=== PATIENT | male | born 1950 | race Caucasian/White ===

== ENCOUNTER → 2017-08-25 10:29 | Outpatient (CLI) | payer MEDICARE, MEDICAID, SELFPAY | PROVIDERS: PCP Family Medicine Geriatric Medicine; Visit Provider Internal Medicine | DX: I87.312 Chronic venous hypertension (idiopathic) with ulcer of left lower extremity (principal); L97.822 Non-pressure chronic ulcer of other part of left lower leg with fat layer exposed; R21 Rash and other nonspecific skin eruption; L03.116 Cellulitis of left lower limb | CPT/HCPCS: 11042 ==

== ENCOUNTER → 2017-08-25 14:07 | Outpatient (REF) | payer MEDICARE, MEDICAID, SELFPAY | LOC: LAB 14:07 | PROVIDERS: PCP Family Medicine Geriatric Medicine; Visit Provider Internal Medicine | DX: L08.9 Local infection of the skin and subcutaneous tissue, unspecified (principal) | CPT/HCPCS: 87070; 87075; 87077; 87186; 87205 ==

== ENCOUNTER → 2017-09-01 13:18 | Outpatient (CLI) | payer MEDICARE, MEDICAID, SELFPAY | PROVIDERS: PCP Family Medicine Geriatric Medicine; Visit Provider Internal Medicine | DX: I87.2 Venous insufficiency (chronic) (peripheral) (principal); L97.822 Non-pressure chronic ulcer of other part of left lower leg with fat layer exposed; A49.01 Methicillin susceptible Staphylococcus aureus infection, unspecified site; A48.1 Legionnaires' disease | CPT/HCPCS: 11042 ==

== ENCOUNTER → 2017-09-08 10:23 | Outpatient (CLI) | payer MEDICARE, MEDICAID, SELFPAY | PROVIDERS: PCP Family Medicine Geriatric Medicine; Visit Provider Internal Medicine | DX: I87.332 Chronic venous hypertension (idiopathic) with ulcer and inflammation of left lower extremity (principal); L97.812 Non-pressure chronic ulcer of other part of right lower leg with fat layer exposed; B35.4 Tinea corporis; R21 Rash and other nonspecific skin eruption; R73.9 Hyperglycemia, unspecified | CPT/HCPCS: 11042 ==

== ENCOUNTER → 2017-09-22 11:07 | Outpatient (CLI) | payer MEDICARE, MEDICAID, SELFPAY ==
--- NOTE | 2017-09-22 | OV.WND_ITS ---
Progress Note Details Patient Name: Denagelo José Patient Number: [id number] PatientPatientDate: 09/22/2017 Clinician: Norma Samayoa Clinician Cosigner: Lita Lott Physician / Venetian Blind Machine Operator: Jax Krishnan SUBJECTIVE Chief Complaint This information was obtained from the patient Venous ulcer on left leg. Allergies Darvocet-N (Severity: Moderate, Reaction: vomiting), Sulfa (Sulfonamide Antibiotics) (Severity: Moderate, Reaction: rash), Knycqht-Tye-Vmz Reductase Inhibitors ( Severity: Moderate, Reaction: arthralgia), Cephalosporins (Reaction: unknown), penicillin (Reaction: unkown) HPI This information was obtained from the patient 09/22/17. Seen by Bharath Krishnan PA-C. The patient reports a pruritic rash in the periwound area and stable drainage from his venous ulcer of the left leg. 09/08/17. Seen by Dr. Brandt. The patient does not report increased pain associated with the chronic left lower leg venous ulcer since his last visit and he's been applying topical triamcimolone in the periulcer area to treat the chronic rash. Of note, he also reports a new rash over his right wrist. He's reportedly been diagnosed with diabetes in the past while in the hospital but states he's not being treated for this and does not routinely check his blood sugars. 09/01/17. Seen by Dr. Brandt. The patient reports decreased pain and drainage associated with the chronic left lower leg venous ulcer since his last visit and since starting on doxycycline associated cellulitis. His wound culture grew MSSA and group B Strep. 08/25/2017. Seen by Dr. Brandt. Patient reports increased pain and pruritis associated with chronic left lower leg venous ulcer since his last visit. Drainage has increased also and his wound VAC stopped working 3 days ago. He is not currently on antibiotics and does not report fevers or feeling unwell otherwise. 08/18/17. Seen by Dr. Brandt. The patient does not report increased pain associated with the chronic left lower leg venous ulcer since his last visit and he tolerated the compression wrap that's treating chronic venous hypertension without difficulty. 08/11/17. Seen by Dr. Brandt. The patient does not report increased pain associated with the chronic left lower leg venous ulcer since his last visit. He's not been able to pepper picker his Rx that was prescribed for cellulitis associated with the ulcer last week however he tolerated his compression wrap that's treating chronic venous hypertension without difficulty. 08/06/17. Seen by Dr. Brandt. The patient does not report increased pain associated with the chronic left lower leg venous ulcer since his last visit however he continues to have significant green drainage on his dressings. His most recent wound culture grew a resistant coag negative Staph and he's been unable to pepper picker his antibiotics that we prescribed following his last visit. He does not report fevers or feeling unwell in general however. 08/04/17. Seen by Dr. Brandt. The patient does not report increased pain or drainage associated to chronic left lower leg venous ulcers since his last visit. His recent culture grew Diptheroids and a Staph species which is resistant to gentamicin. He's also wearing his compression stocking as recommended to treat chronic venous hypertension in the leg and we' re considering placing a Coban wrap today to further address this issue. 07/28/17. Seen by Dr. Brandt. The patient reports some intermittent pain associated with chronic left lower leg venous ulcer. He has completed his course of doxycycline that was treating the MRSA positive wound culture. His arterial Doppler was also unremarkable and the staff also note increased swelling in the left leg today. 07/21/17. Seen by Dr. Brandt. The patient feels that pain reported last week associated with a chronic left lower leg venous ulcer has improved considerably since started on doxycycline. Of note his culture from the last visit grew MRSA sensitive to doxycycline. He is not reporting any problems regarding the wound VAC, fevers, or feeling unwell otherwise. 07/14/17. Seen by Dr. Brandt. The patient continues on levofloxacin for cellulitis associated with chronic left lower leg venous ulcer since his last visit. He does not reporting or side effects fevers or feeling unwell. He is also tolerating negative pressure wound therapy without difficulty. 07/07/17. Seen by Dr. Brandt. The patient does not report increased pain or drainage associated to chronic left lower leg venous ulcers since his last visit. He is now on levofloxacin for the recent MSSA positive culture and cellulitis associated with the ulcer. He does not report other side effects, fevers, nor feeling unwell in general. 06/30/17. Seen by Dr. Brandt. The patient reports some pain associated with the chronic left lower leg venous ulcer that was first noticeable 3 days ago. He does not report fevers or feeling unwell and is currently not on antibiotics. He is wearing his compression stockings recommended and tolerating a pressure with therapy without difficulty. 06/23/17. Seen by Dr. Brandt. The patient reports some intermittent discomfort associated with the chronic left lower leg venous ulcer since last visit. He is tolerating a negative pressure wound therapy and his compression stocking without difficulty also. 06/16/17. Seen by Bharath Krishnan PA-C. The patient reports that his ulcer drainage has decreased since he began taking doxycycline. He still has a few days left in his prescribed course. 06/10/17. Seen by Dr. Brandt. The patient does not report pain or increased drainage associated with the chronic left lower leg venous ulcer since his last visit and he continues on docxycycline for the recent cellulitis associated with the ulcer. 06/03/17. Seen by Dr. Brandt. The patient was started on ciprofloxacin for the recent Klebsiella and staph positive wound culture taken last week from the left lower leg venous ulcer. He reports moderate to significant nausea when taking the ciprofloxacin and stopped after 3 days. He does not report fevers or feeling unwell or pain associated with the ulcer today and his arterial Doppler has not yet been scheduled. 05/26/17. Seen by Bharath Krishnan PA-C. This patient is new to our clinic and presents with an ulcer of the left lower leg that has been present for 2 months. He reports that he has previously been on antibiotics and that the ulcer has grown in size over the past 2 months. The ulcer began as a blister associated with a bout of cellulitis in his left leg. Family History This information was obtained from the patient Unknown History - Mother, Father, Paternal Grandparents, Heart Disease - Maternal Grandparents Social History This information was obtained from the patient Former smoker - Smoked for 20 years, Quit around 2005, Alcohol Use - 1 per week , Caffeine Use - 1 per day, Children - 1, Lives in - Private home- trailer, Marital Status - Significant Other, Retired Past Medical History This information was obtained from the patient Patient has a medical history of: Osteoarthritis Degenerative Joint Disease Hyperthyroidism Pulmonary Hypertension Chronic nonspecific lung disease Complaints and Symptoms This information was obtained from the patient Patient complains of: General Notes: I have reviewed and concur with the Review of Systems and Past Family Social History documents completed by the clinician, I have reviewed and concur with the Wound Assessment document completed by the clinician Allergic/Immunologic: Frequent Rashes Cardiovascular (Central/Peripheral): Lower extremity (leg) swelling Integumentary (Hair/Skin/Nails): Open Sore Prior Wound History: Drainage, Pain Patient denies complaints or symptoms related to: Cardiovascular (Central): Irregular heart beat Constitutional Symptoms (General Health): Chills, Fever Ear/Nose/Mouth/Throat: Hearing Loss / Aid Gastrointestinal (GI): Nausea / Vomiting Hematologic/Lymphatic: Bleeding / Clotting Disorders, Bleeding Tendency Musculoskeletal: Assistive Devices, Muscle Wasting Neurological: Loss of Protective Sensation, Paralysis Psychiatric: Memory Loss Respiratory: Oxygen Use, Shortness of Breath OBJECTIVE Constitutional Vital signs reviewed and noted. Well developed, lucid, and in no acute distress. . Height/Length: 71 in (180.34 cm), Weight: 235.4 lbs (107 kgs), BMI: 32.8, Temperature: 99.8 ?F (37.67 ?C), Pulse: 103 bpm, Respiratory Rate: 18 breaths/min, Blood Pressure : 147/98 mmHg, Pulse Oximetry: 95 %. Ears, Nose, Mouth, and Throat: Grossly intact. Respiratory: No respiratory distress. Even respirations and without use of accessory muscles.. Integumentary (Hair, Skin) Mild erythema in the periwound area/s without warmth. Refer to appropriate clinician wound documentation for this visit; ulcer extends to subcutaneous fat layer. . Wound #1 Left Leg is a chronic Full Thickness Venous Ulcer and has received a status of Not Healed. Subsequent wound encounter measurements are 2.6cm length x 3cm width x 0.2cm depth, with an area of 7.8 sq cm and a volume of 1.56 cubic cm. No tunneling has been noted. No sinus tract has been noted. No undermining has been noted. There is a moderate amount of sero-sanguineous drainage noted which has no odor. The patient reports a wound pain of level 3/10. The wound margin is attached. Wound bed has Yes epithelialization, No eschar, Yes slough, Yes bright red, pink, firm granulation. The periwound skin exhibited: Edema, Moist, Hemosiderosis. The periwound skin did not exhibit: Brawny Induration, Excoriation, Induration, Callus, Crepitus, Fluctuance, Friable, Rash, Maceration, Atrophie Jennifer, Cyanosis, Ecchymosis, Erythema, Pallor, Rubor. The temperature of the periwound skin is WNL. Periwound skin does not exhibit signs or symptoms of infection. Local Pulse is Palpable. Psychiatric: Judgement and insight: Normal affect with normal thought pattern. Alert and oriented 3/3. Memory grossly intact.. Normal affect. Mood appropriate.. ASSESSMENT Active Problems ICD-10 (Encounter Diagnosis) L97.812 - Non-pressure chronic ulcer of other part of right lower leg with fat layer exposed (Encounter Diagnosis) I87.332 - Chronic venous hypertension (idiopathic) with ulcer and inflammation of left lower extremity (Encounter Diagnosis) R21 - Rash and other nonspecific skin eruption PROCEDURES Wound #1 Wound #1 (Venous Ulcer) is located on the left leg. A skin/subcutaneous tissue level surgical debridement with a total area debrided of 7.8 sq cm was performed by Jax Krishnan PA. Subcutaneous was removed along with devitalized tissue: exudate and slough. The following instrument(s) were used: curette. Pain control was achieved using 4% Lido. A time out was conducted prior to the start of the procedure. A minimal amount of bleeding was controlled with pressure. The procedure was tolerated well with a pain level of 0 throughout and a pain level of 0 following the procedure. Post Debridement Measurements: 2.6cm length x 3cm width x 0.3cm depth; with an area of 7.8 sq cm and a volume of 2.34 cubic cm; PLAN Wound Orders: Wound #1 Left Leg Anesthetic Topical Xylocaine to wound bed. - In clinic only Cleanser Cleanse Wound: - Normal Saline in clinic. May use distilled water at home May Shower. - Please avoid getting tap water in wound. Cover while in shower. Topical Treatments Moisturizing lotion to surround skin. - Triamcinolone Dressings Primary dressing: - Bordered foam. Change Dressing: - Every other day. Additional Orders: Follow-Up Appointments Return Appointment: - - One week Other information: If you develop fever, chills, increased pain, drainage, redness or swelling please call our office. If after hours, respond to the ER. Should you experience any significant changes in your wound(s) or have any questions regarding your home care instructions please contact the wound center @ [phone]. If after hours, contact your primary care physician or go to the hospital emergency room. Scribing Attestation I attest, as the nurse, that I scribed these orders for the physician. I've reviewed the clinician's documentation and agree with the evaluation and plan as written. In addition the patient's ulcer demonstrates evidence of non-viable devitalized tissue which benefits from sharp debridement. I have given the patient a prescription for triamcinolone to apply sparingly to his rash to relieve itching. Electronic Signature(s) Signed By: Date: Bharath Krishnan 09/27/2017 13:49:03 Entered By: Bharath Krishnan on 09/27/2017 12:53:36
== END ==
PROVIDERS: PCP Family Medicine Geriatric Medicine; Visit Provider Physician Assistant
DX: I87.312 Chronic venous hypertension (idiopathic) with ulcer of left lower extremity (principal); L97.822 Non-pressure chronic ulcer of other part of left lower leg with fat layer exposed; M79.605 Pain in left leg
CPT/HCPCS: 11042

== ENCOUNTER → 2017-10-06 11:20 | Outpatient (CLI) | payer MEDICARE, MEDICAID, SELFPAY ==
--- NOTE | 2017-10-06 | OV.WND_ITS ---
Progress Note Details Patient Name: Deangeol José Patient Number: [id number] PatientPatientDate: 10/06/2017 Clinician: Norma Samayoa Clinician Cosigner: Юлия Robison Physician / Microbiology Quality Control Technician: Cash Brandt SUBJECTIVE Chief Complaint This information was obtained from the patient Venous ulcer on left leg. Allergies Darvocet-N (Severity: Moderate, Reaction: vomiting), Sulfa (Sulfonamide Antibiotics) (Severity: Moderate, Reaction: rash), Faepddd-Cjg-Jwo Reductase Inhibitors ( Severity: Moderate, Reaction: arthralgia), Cephalosporins (Reaction: unknown), penicillin (Reaction: unkown) HPI This information was obtained from the patient 10/06/17. Seen by Dr. Brandt. The patient reports increased pain associated with the chronic left lower leg venous ulcer since his last visit. He states he missed his last appointment because he slept in. 09/22/17. Seen by Bharath Krishnan PA-C. The patient reports a pruritic rash in the periwound area and stable drainage from his venous ulcer of the left leg. 09/08/17. Seen by Dr. Brandt. The patient does not report increased pain associated with the chronic left lower leg venous ulcer since his last visit and he's been applying topical triamcimolone in the periulcer area to treat the chronic rash. Of note, he also reports a new rash over his right wrist. He's reportedly been diagnosed with diabetes in the past while in the hospital but states he's not being treated for this and does not routinely check his blood sugars. 09/01/17. Seen by Dr. Brandt. The patient reports decreased pain and drainage associated with the chronic left lower leg venous ulcer since his last visit and since starting on doxycycline associated cellulitis. His wound culture grew MSSA and group B Strep. 08/25/2017. Seen by Dr. Brandt. Patient reports increased pain and pruritis associated with chronic left lower leg venous ulcer since his last visit. Drainage has increased also and his wound VAC stopped working 3 days ago. He is not currently on antibiotics and does not report fevers or feeling unwell otherwise. 08/18/17. Seen by Dr. Brandt. The patient does not report increased pain associated with the chronic left lower leg venous ulcer since his last visit and he tolerated the compression wrap that's treating chronic venous hypertension without difficulty. 08/11/17. Seen by Dr. Brandt. The patient does not report increased pain associated with the chronic left lower leg venous ulcer since his last visit. He's not been able to bulk picker his Rx that was prescribed for cellulitis associated with the ulcer last week however he tolerated his compression wrap that's treating chronic venous hypertension without difficulty. 08/06/17. Seen by Dr. Brandt. The patient does not report increased pain associated with the chronic left lower leg venous ulcer since his last visit however he continues to have significant green drainage on his dressings. His most recent wound culture grew a resistant coag negative Staph and he's been unable to bulk picker his antibiotics that we prescribed following his last visit. He does not report fevers or feeling unwell in general however. 08/04/17. Seen by Dr. Brandt. The patient does not report increased pain or drainage associated to chronic left lower leg venous ulcers since his last visit. His recent culture grew Diptheroids and a Staph species which is resistant to gentamicin. He's also wearing his compression stocking as recommended to treat chronic venous hypertension in the leg and we' re considering placing a Coban wrap today to further address this issue. 07/28/17. Seen by Dr. Brandt. The patient reports some intermittent pain associated with chronic left lower leg venous ulcer. He has completed his course of doxycycline that was treating the MRSA positive wound culture. His arterial Doppler was also unremarkable and the staff also note increased swelling in the left leg today. 07/21/17. Seen by Dr. Brandt. The patient feels that pain reported last week associated with a chronic left lower leg venous ulcer has improved considerably since started on doxycycline. Of note his culture from the last visit grew MRSA sensitive to doxycycline. He is not reporting any problems regarding the wound VAC, fevers, or feeling unwell otherwise. 07/14/17. Seen by Dr. Brandt. The patient continues on levofloxacin for cellulitis associated with chronic left lower leg venous ulcer since his last visit. He does not reporting or side effects fevers or feeling unwell. He is also tolerating negative pressure wound therapy without difficulty. 07/07/17. Seen by Dr. Brandt. The patient does not report increased pain or drainage associated to chronic left lower leg venous ulcers since his last visit. He is now on levofloxacin for the recent MSSA positive culture and cellulitis associated with the ulcer. He does not report other side effects, fevers, nor feeling unwell in general. 06/30/17. Seen by Dr. Brandt. The patient reports some pain associated with the chronic left lower leg venous ulcer that was first noticeable 3 days ago. He does not report fevers or feeling unwell and is currently not on antibiotics. He is wearing his compression stockings recommended and tolerating a pressure with therapy without difficulty. 06/23/17. Seen by Dr. Brandt. The patient reports some intermittent discomfort associated with the chronic left lower leg venous ulcer since last visit. He is tolerating a negative pressure wound therapy and his compression stocking without difficulty also. 06/16/17. Seen by hBarath Krishnan PA-C. The patient reports that his ulcer drainage has decreased since he began taking doxycycline. He still has a few days left in his prescribed course. 06/10/17. Seen by Dr. Brandt. The patient does not report pain or increased drainage associated with the chronic left lower leg venous ulcer since his last visit and he continues on docxycycline for the recent cellulitis associated with the ulcer. 06/03/17. Seen by Dr. Brandt. The patient was started on ciprofloxacin for the recent Klebsiella and staph positive wound culture taken last week from the left lower leg venous ulcer. He reports moderate to significant nausea when taking the ciprofloxacin and stopped after 3 days. He does not report fevers or feeling unwell or pain associated with the ulcer today and his arterial Doppler has not yet been scheduled. 05/26/17. Seen by Bharath Krishnan PA-C. This patient is new to our clinic and presents with an ulcer of the left lower leg that has been present for 2 months. He reports that he has previously been on antibiotics and that the ulcer has grown in size over the past 2 months. The ulcer began as a blister associated with a bout of cellulitis in his left leg. Past Medical History This information was obtained from the patient Patient has a medical history of: Osteoarthritis Degenerative Joint Disease Hyperthyroidism Pulmonary Hypertension Chronic nonspecific lung disease Complaints and Symptoms This information was obtained from the patient Patient complains of: General Notes: I have reviewed and concur with the Review of Systems and Past Family Social History documents completed by the clinician, I have reviewed and concur with the Wound Assessment document completed by the clinician Allergic/Immunologic: Frequent Rashes Cardiovascular (Central/Peripheral): Lower extremity (leg) swelling Integumentary (Hair/Skin/Nails): Open Sore Prior Wound History: Drainage, Pain Patient denies complaints or symptoms related to: Cardiovascular (Central): Irregular heart beat Constitutional Symptoms (General Health): Chills, Fever Ear/Nose/Mouth/Throat: Hearing Loss / Aid Gastrointestinal (GI): Nausea / Vomiting Hematologic/Lymphatic: Bleeding / Clotting Disorders, Bleeding Tendency Musculoskeletal: Assistive Devices, Muscle Wasting Neurological: Loss of Protective Sensation, Paralysis Psychiatric: Memory Loss Respiratory: Oxygen Use, Shortness of Breath OBJECTIVE Constitutional BP elevated; Afebrile; Alert and in no distress. Well developed. Alert. Clean appearing.. Height/Length: 71 in (180.34 cm), Weight: 232 lbs (105.45 kgs), BMI: 32.4, Temperature: 99.7 ?F (37.61 ?C), Pulse: 96 bpm, Respiratory Rate: 18 breaths/min, Blood Pressure: 148/89 mmHg, Pulse Oximetry: 98 %. Ears, Nose, Mouth, and Throat: No clinically significant hearing loss on informal examination. Respiratory: No respiratory distress. Even respirations and without use of accessory muscles.. Integumentary (Hair, Skin) Mild periwound erythema with warmth. Refer to appropriate clinician wound documentation for this visit; left lower leg ulcer extends to subcut with base partially covered with pink granulation, remainder fibrin and slough. Wound #1 Left Leg is a chronic Full Thickness Venous Ulcer and has received a status of Not Healed. Subsequent wound encounter measurements are 2.5cm length x 2.6cm width x 0.1cm depth, with an area of 6.5 sq cm and a volume of 0.65 cubic cm. No tunneling has been noted. No sinus tract has been noted. No undermining has been noted. There is a moderate amount of sero-sanguineous drainage noted which has no odor. The patient reports a wound pain of level 3/10. The wound margin is attached. Wound bed has Yes epithelialization, No eschar, Yes slough, Yes bright red, pink, firm granulation. The periwound skin moisture is normal. The periwound skin exhibited: Edema, Hemosiderosis. The periwound skin did not exhibit: Brawny Induration, Excoriation, Induration, Callus, Crepitus, Fluctuance, Friable, Rash, Atrophie Jennifer, Cyanosis, Ecchymosis, Erythema, Pallor, Rubor. The temperature of the periwound skin is WNL. Periwound skin does not exhibit signs or symptoms of infection. Local Pulse is Palpable. Neurological: Cranial nerves grossly intact with symmetric function normal by informal observation.. ASSESSMENT Active Problems ICD-10 (Encounter Diagnosis) L97.812 - Non-pressure chronic ulcer of other part of right lower leg with fat layer exposed (Encounter Diagnosis) I87.332 - Chronic venous hypertension (idiopathic) with ulcer and inflammation of left lower extremity (Encounter Diagnosis) L08.9 - Local infection of the skin and subcutaneous tissue, unspecified PROCEDURES Wound #1 Wound #1 (Venous Ulcer) is located on the left leg. A skin/subcutaneous tissue level surgical debridement with a total area debrided of 6.5 sq cm was performed by Cash Brandt MD. Subcutaneous was removed along with devitalized tissue: slough. The following instrument(s) were used: curette. Pain control was achieved using 4% Lido. A time out was conducted prior to the start of the procedure. A minimal amount of bleeding was controlled with pressure. The procedure was tolerated well with a pain level of 0 throughout and a pain level of 0 following the procedure. Post Debridement Measurements: 2.5cm length x 2.6cm width x 0.2cm depth; with an area of 6.5 sq cm and a volume of 1.3 cubic cm; PLAN Wound Orders: Wound #1 Left Leg Anesthetic Topical Xylocaine to wound bed. - In clinic only Cleanser Cleanse Wound: - Normal Saline in clinic. May use distilled water at home May Shower. - Please avoid getting tap water in wound. Cover while in shower. Topical Treatments Antibiotic/Antimicrobial Ointment/Cream. - Triple antibiotic to wound bed. Dressings Primary dressing: - Bordered foam. Change Dressing: - Every other day. Additional Orders: Follow-Up Appointments Return Appointment: - - One week Other information: If you develop fever, chills, increased pain, drainage, redness or swelling please call our office. If after hours, respond to the ER. Should you experience any significant changes in your wound(s) or have any questions regarding your home care instructions please contact the wound center @ [phone]. If after hours, contact your primary care physician or go to the hospital emergency room. Scribing Attestation I attest, as the nurse, that I scribed these orders for the physician. Laboratory: Bacteria identified in Wound by Culture - #1 Left leg. I've reviewed the clinician's documentation and agree with the evaluation and plan as written. In addition, the patient's ulcer demonstrates evidence of non-viable devitalized tissue which will continue to benefit from sharp debridement to help promote granulation and expedite healing. Also, the patient's left lower leg ulcer appears to be infected today and I've repeated a wound culture and started treating with topical OTC antibiotic ointment. Electronic Signature(s) Signed By: Date: Cash Brandt MD 10/08/2017 08:46:21 Entered By: Cash Brandt on 10/06/2017 14:14:09
== END ==
PROVIDERS: PCP Family Medicine Geriatric Medicine; Visit Provider Internal Medicine
DX: I87.312 Chronic venous hypertension (idiopathic) with ulcer of left lower extremity (principal); L97.822 Non-pressure chronic ulcer of other part of left lower leg with fat layer exposed; L08.9 Local infection of the skin and subcutaneous tissue, unspecified
CPT/HCPCS: 11042; 87070; 87075; 87077; 87147; 87205

== ENCOUNTER → 2017-10-20 10:27 | Outpatient (CLI) | payer MEDICARE, MEDICAID, SELFPAY ==
--- NOTE | 2017-10-20 | OV.WND_ITS ---
Progress Note Details Patient Name: Deangelo José Patient Number: [id number] PatientPatientDate: 10/20/2017 Clinician: Lita Lott Clinician Cosigner: Leigh Arredondo Physician / Cutter Operator Tile: Cash Brandt SUBJECTIVE Chief Complaint This information was obtained from the patient Venous ulcer on left leg. Allergies Darvocet-N (Severity: Moderate, Reaction: vomiting), Sulfa (Sulfonamide Antibiotics) (Severity: Moderate, Reaction: rash), Ycldqmj-Glw-Fbj Reductase Inhibitors ( Severity: Moderate, Reaction: arthralgia), Cephalosporins (Reaction: unknown), penicillin (Reaction: unkown) HPI This information was obtained from the patient . Seen by Dr. Brandt. The patient does not report increased pain or drainage associated with the chronic left lower leg venous ulcer since his last visit. He missed last week's appointment because he overslept and of note he states he went swimming before his appointment today in [place]. The dressing was uncovered when he arrived today. 10/06/17. Seen by Dr. Brandt. The patient reports increased pain associated with the chronic left lower leg venous ulcer since his last visit. He states he missed his last appointment because he slept in. 09/22/17. Seen by Bharath Krishnan PA-C. The patient reports a pruritic rash in the periwound area and stable drainage from his venous ulcer of the left leg. 09/08/17. Seen by Dr. Brandt. The patient does not report increased pain associated with the chronic left lower leg venous ulcer since his last visit and he's been applying topical triamcimolone in the periulcer area to treat the chronic rash. Of note, he also reports a new rash over his right wrist. He's reportedly been diagnosed with diabetes in the past while in the hospital but states he's not being treated for this and does not routinely check his blood sugars. 09/01/17. Seen by Dr. Brandt. The patient reports decreased pain and drainage associated with the chronic left lower leg venous ulcer since his last visit and since starting on doxycycline associated cellulitis. His wound culture grew MSSA and group B Strep. 08/25/2017. Seen by Dr. Brandt. Patient reports increased pain and pruritis associated with chronic left lower leg venous ulcer since his last visit. Drainage has increased also and his wound VAC stopped working 3 days ago. He is not currently on antibiotics and does not report fevers or feeling unwell otherwise. 08/18/17. Seen by Dr. Brandt. The patient does not report increased pain associated with the chronic left lower leg venous ulcer since his last visit and he tolerated the compression wrap that's treating chronic venous hypertension without difficulty. 08/11/17. Seen by Dr. Brandt. The patient does not report increased pain associated with the chronic left lower leg venous ulcer since his last visit. 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 08/06/17. Seen by Dr. Brandt. The patient does not report increased pain associated with the chronic left lower leg venous ulcer since his last visit however he continues to have significant green drainage on his dressings. 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 He does not report fevers or feeling unwell in general however. 08/04/17. Seen by Dr. Brandt. The patient does not report increased pain or drainage associated to chronic left lower leg venous ulcers since his last visit. His recent culture grew Diptheroids and a Staph species which is resistant to gentamicin. He's also wearing his compression stocking as recommended to treat chronic venous hypertension in the leg and we' re considering placing a Coban wrap today to further address this issue. 07/28/17. Seen by Dr. Brandt. The patient reports some intermittent pain associated with chronic left lower leg venous ulcer. He has completed his course of doxycycline that was treating the MRSA positive wound culture. His arterial Doppler was also unremarkable and the staff also note increased swelling in the left leg today. 07/21/17. Seen by Dr. Brandt. The patient feels that pain reported last week associated with a chronic left lower leg venous ulcer has improved considerably since started on doxycycline. Of note his culture from the last visit grew MRSA sensitive to doxycycline. He is not reporting any problems regarding the wound VAC, fevers, or feeling unwell otherwise. 07/14/17. Seen by Dr. Brandt. The patient continues on levofloxacin for cellulitis associated with chronic left lower leg venous ulcer since his last visit. He does not reporting or side effects fevers or feeling unwell. He is also tolerating negative pressure wound therapy without difficulty. 07/07/17. Seen by Dr. Brandt. The patient does not report increased pain or drainage associated to chronic left lower leg venous ulcers since his last visit. He is now on levofloxacin for the recent MSSA positive culture and cellulitis associated with the ulcer. He does not report other side effects, fevers, nor feeling unwell in general. 06/30/17. Seen by Dr. Brandt. The patient reports some pain associated with the chronic left lower leg venous ulcer that was first noticeable 3 days ago. He does not report fevers or feeling unwell and is currently not on antibiotics. He is wearing his compression stockings recommended and tolerating a pressure with therapy without difficulty. 06/23/17. Seen by Dr. Brandt. The patient reports some intermittent discomfort associated with the chronic left lower leg venous ulcer since last visit. He is tolerating a negative pressure wound therapy and his compression stocking without difficulty also. 06/16/17. Seen by Bharath Krishnan PA-C. The patient reports that his ulcer drainage has decreased since he began taking doxycycline. He still has a few days left in his prescribed course. 06/10/17. Seen by Dr. Brandt. The patient does not report pain or increased drainage associated with the chronic left lower leg venous ulcer since his last visit and he continues on docxycycline for the recent cellulitis associated with the ulcer. 06/03/17. Seen by Dr. Brandt. The patient was started on ciprofloxacin for the recent Klebsiella and staph positive wound culture taken last week from the left lower leg venous ulcer. He reports moderate to significant nausea when taking the ciprofloxacin and stopped after 3 days. He does not report fevers or feeling unwell or pain associated with the ulcer today and his arterial Doppler has not yet been scheduled. 05/26/17. Seen by Bharath Krishnan PA-C. This patient is new to our clinic and presents with an ulcer of the left lower leg that has been present for 2 months. He reports that he has previously been on antibiotics and that the ulcer has grown in size over the past 2 months. The ulcer began as a blister associated with a bout of cellulitis in his left leg. Past Medical History This information was obtained from the patient Patient has a medical history of: Osteoarthritis Degenerative Joint Disease Hyperthyroidism Pulmonary Hypertension Chronic nonspecific lung disease Complaints and Symptoms This information was obtained from the patient Patient complains of: General Notes: I have reviewed and concur with the Review of Systems and Past Family Social History documents completed by the clinician, I have reviewed and concur with the Wound Assessment document completed by the clinician Allergic/Immunologic: Frequent Rashes Cardiovascular (Central/Peripheral): Lower extremity (leg) swelling Integumentary (Hair/Skin/Nails): Open Sore Prior Wound History: Drainage, Pain Patient denies complaints or symptoms related to: Cardiovascular (Central): Irregular heart beat Constitutional Symptoms (General Health): Chills, Fever Ear/Nose/Mouth/Throat: Hearing Loss / Aid Gastrointestinal (GI): Nausea / Vomiting Hematologic/Lymphatic: Bleeding / Clotting Disorders, Bleeding Tendency Musculoskeletal: Assistive Devices, Muscle Wasting Neurological: Loss of Protective Sensation, Paralysis Psychiatric: Memory Loss Respiratory: Oxygen Use, Shortness of Breath OBJECTIVE Constitutional BP elevated; Afebrile; Alert and in no distress. Well developed. Alert. Clean appearing.. Height/Length: 71 in (180.34 cm), Weight: 224.5 lbs (102.05 kgs), BMI: 31.3, Temperature: 98.1 ?F (36.72 ?C), Pulse: 90 bpm, Respiratory Rate: 18 breaths/min, Blood Pressure: 164/91 mmHg, Pulse Oximetry: 98 %. Ears, Nose, Mouth, and Throat: No clinically significant hearing loss on informal examination. Respiratory: No respiratory distress. Even respirations and without use of accessory muscles.. Cardiovascular: 1+ left lower extremity edema. Integumentary (Hair, Skin) Mild periwound erythema with warmth. Refer to appropriate clinician wound documentation for this visit; left lower leg ulcer extends to subcut with base partially covered with pink granulation, remainder fibrin and slough. Wound #1 Left Leg is a chronic Full Thickness Venous Ulcer and has received a status of Not Healed. Subsequent wound encounter measurements are 4cm length x 2.8cm width x 0.1cm depth, with an area of 11.2 sq cm and a volume of 1.12 cubic cm. No tunneling has been noted. No sinus tract has been noted. No undermining has been noted. There is a moderate amount of sero-sanguineous drainage noted which has no odor. The patient reports a wound pain of level 3/10. The wound margin is attached. Wound bed has Yes epithelialization, No eschar, Yes slough, Yes bright red, pink, firm granulation. The periwound skin moisture is normal. The periwound skin exhibited: Edema, Hemosiderosis. The periwound skin did not exhibit: Brawny Induration, Excoriation, Induration, Callus, Crepitus, Fluctuance, Friable, Rash, Atrophie Jennifer, Cyanosis, Ecchymosis, Erythema, Pallor, Rubor. The temperature of the periwound skin is WNL. Periwound skin does not exhibit signs or symptoms of infection. Local Pulse is Palpable. Neurological: Cranial nerves grossly intact with symmetric function normal by informal observation.. ASSESSMENT Active Problems ICD-10 (Encounter Diagnosis) L97.812 - Non-pressure chronic ulcer of other part of right lower leg with fat layer exposed (Encounter Diagnosis) I87.332 - Chronic venous hypertension (idiopathic) with ulcer and inflammation of left lower extremity (Encounter Diagnosis) L03.116 - Cellulitis of left lower limb (Encounter Diagnosis) Z91.19 - Patient's noncompliance with other medical treatment and regimen PROCEDURES Wound #1 Wound #1 (Venous Ulcer) is located on the left leg. A skin/subcutaneous tissue level surgical debridement with a total area debrided of 11.2 sq cm was performed by Cash Brandt MD. Subcutaneous was removed along with devitalized tissue: exudate and slough. The following instrument(s) were used: curette. Pain control was achieved using 4% Lido. A time out was conducted prior to the start of the procedure. A minimal amount of bleeding was controlled with pressure. The procedure was tolerated well with a pain level of 0 throughout and a pain level of 0 following the procedure. Post Debridement Measurements: 4cm length x 2.8cm width x 0.2cm depth; with an area of 11.2 sq cm and a volume of 2.24 cubic cm; Additional Information Muscle fascia or bone removed and sent to pathology?: No PLAN Wound Orders: Wound #1 Left Leg Anesthetic Topical Xylocaine to wound bed. - In clinic only. Cleanser Cleanse Wound: - Normal Saline in clinic. May use distilled water at home. May Shower. - Please avoid getting tap water in wound. Cover while in shower. DO NOT EXPOSE WOUND TO ANY WATER, INCLUDING LAKES, TAP WATER ETC. Topical Treatments Antibiotic/Antimicrobial Ointment/Cream. - Triple antibiotic to wound bed. Dressings Primary dressing: - Bordered foam. Change Dressing: - Every other day. Additional Orders: Compression/Edema Control Single Layer Compression Hose - Tetragrip size F to left leg, on in the morning and off at night. Follow-Up Appointments Return Appointment: - - One week. Other information: If you develop fever, chills, increased pain, drainage, redness or swelling please call our office. If after hours, respond to the ER. Should you experience any significant changes in your wound(s) or have any questions regarding your home care instructions please contact the wound center @ [phone]. If after hours, contact your primary care physician or go to the hospital emergency room. Scribing Attestation I attest, as the nurse, that I scribed these orders for the physician. 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 I've reviewed the clinician's documentation and agree with the evaluation and plan as written. In addition, the patient's ulcer demonstrates evidence of non-viable devitalized tissue which will continue to benefit from sharp debridement to help promote granulation and expedite healing. Also, the patient's been advised regarding contamination of the ulcer and the need to maintain adequate hygiene. I've also started him on doxycycline due to cellulitis as noted on exam. Electronic Signature(s) Signed By: Date: Cash Brandt MD 10/21/2017 07:05:31 Entered By: Cash Brandt on 10/20/2017 11:57:54
== END ==
PROVIDERS: PCP Family Medicine Geriatric Medicine; Visit Provider Internal Medicine
DX: I87.312 Chronic venous hypertension (idiopathic) with ulcer of left lower extremity (principal); L97.822 Non-pressure chronic ulcer of other part of left lower leg with fat layer exposed; Z91.19 Patient's noncompliance with other medical treatment and regimen
CPT/HCPCS: 11042; 87070; 87075; 87077; 87147; 87186; 87205

== ENCOUNTER → 2017-11-05 10:19 | Outpatient (CLI) | payer MEDICARE, MEDICAID, SELFPAY ==
--- NOTE | 2017-11-05 | OV.WND_ITS ---
Progress Note Details Patient Name: Deangelo José Patient Number: [id number] PatientPatientDate: 11/05/2017 Clinician: Lita Lott Clinician Cosigner: Norma Samayoa Physician / Traffic Representative: Cash Brandt SUBJECTIVE Chief Complaint This information was obtained from the patient Venous ulcer on left leg. Allergies Darvocet-N (Severity: Moderate, Reaction: vomiting), Sulfa (Sulfonamide Antibiotics) (Severity: Moderate, Reaction: rash), Llbgovj-Dsa-Bvu Reductase Inhibitors ( Severity: Moderate, Reaction: arthralgia), Cephalosporins (Reaction: unknown), penicillin (Reaction: unkown) HPI This information was obtained from the patient 11/05/17. Seen by Dr. Brandt. The patient does not report increased pain or drainage associated with the chronic left lower leg venous ulcer since his last visit. His recent wound culture again grew Staph and group G Strep and he's not currently on antibiotics. 10/20/17. Seen by Dr. Brandt. The patient does not report increased pain or drainage associated with the chronic left lower leg venous ulcer since his last visit. He missed last week's appointment because he overslept and of note he states he went swimming before his appointment today in [place]. The dressing was uncovered when he arrived today. 10/06/17. Seen by Dr. Brandt. The patient reports increased pain associated with the chronic left lower leg venous ulcer since his last visit. He states he missed his last appointment because he slept in. 09/22/17. Seen by Bharath Krishnan PA-C. The patient reports a pruritic rash in the periwound area and stable drainage from his venous ulcer of the left leg. 09/08/17. Seen by Dr. Brandt. The patient does not report increased pain associated with the chronic left lower leg venous ulcer since his last visit and he's been applying topical triamcimolone in the periulcer area to treat the chronic rash. Of note, he also reports a new rash over his right wrist. He's reportedly been diagnosed with diabetes in the past while in the hospital but states he's not being treated for this and does not routinely check his blood sugars. 09/01/17. Seen by Dr. Brandt. The patient reports decreased pain and drainage associated with the chronic left lower leg venous ulcer since his last visit and since starting on doxycycline associated cellulitis. His wound culture grew MSSA and group B Strep. 08/25/2017. Seen by Dr. Brandt. Patient reports increased pain and pruritis associated with chronic left lower leg venous ulcer since his last visit. Drainage has increased also and his wound VAC stopped working 3 days ago. He is not currently on antibiotics and does not report fevers or feeling unwell otherwise. 08/18/17. Seen by Dr. Brandt. The patient does not report increased pain associated with the chronic left lower leg venous ulcer since his last visit and he tolerated the compression wrap that's treating chronic venous hypertension without difficulty. 08/11/17. Seen by Dr. Brandt. The patient does not report increased pain associated with the chronic left lower leg venous ulcer since his last visit. He's not been able to sampler pickup his Rx that was prescribed for cellulitis associated with the ulcer last week however he tolerated his compression wrap that's treating chronic venous hypertension without difficulty. 08/06/17. Seen by Dr. Brandt. The patient does not report increased pain associated with the chronic left lower leg venous ulcer since his last visit however he continues to have significant green drainage on his dressings. His most recent wound culture grew a resistant coag negative Staph and he's been unable to sampler pickup his antibiotics that we prescribed following his last visit. He does not report fevers or feeling unwell in general however. 08/04/17. Seen by Dr. Brandt. The patient does not report increased pain or drainage associated to chronic left lower leg venous ulcers since his last visit. His recent culture grew Diptheroids and a Staph species which is resistant to gentamicin. He's also wearing his compression stocking as recommended to treat chronic venous hypertension in the leg and we' re considering placing a Coban wrap today to further address this issue. 07/28/17. Seen by Dr. Brandt. The patient reports some intermittent pain associated with chronic left lower leg venous ulcer. He has completed his course of doxycycline that was treating the MRSA positive wound culture. His arterial Doppler was also unremarkable and the staff also note increased swelling in the left leg today. 07/21/17. Seen by Dr. Brandt. The patient feels that pain reported last week associated with a chronic left lower leg venous ulcer has improved considerably since started on doxycycline. Of note his culture from the last visit grew MRSA sensitive to doxycycline. He is not reporting any problems regarding the wound VAC, fevers, or feeling unwell otherwise. 07/14/17. Seen by Dr. Brandt. The patient continues on levofloxacin for cellulitis associated with chronic left lower leg venous ulcer since his last visit. He does not reporting or side effects fevers or feeling unwell. He is also tolerating negative pressure wound therapy without difficulty. 07/07/17. Seen by Dr. Brandt. The patient does not report increased pain or drainage associated to chronic left lower leg venous ulcers since his last visit. He is now on levofloxacin for the recent MSSA positive culture and cellulitis associated with the ulcer. He does not report other side effects, fevers, nor feeling unwell in general. 06/30/17. Seen by Dr. Brandt. The patient reports some pain associated with the chronic left lower leg venous ulcer that was first noticeable 3 days ago. He does not report fevers or feeling unwell and is currently not on antibiotics. He is wearing his compression stockings recommended and tolerating a pressure with therapy without difficulty. 06/23/17. Seen by Dr. Brandt. The patient reports some intermittent discomfort associated with the chronic left lower leg venous ulcer since last visit. He is tolerating a negative pressure wound therapy and his compression stocking without difficulty also. 06/16/17. Seen by Bharath Krishnan PA-C. The patient reports that his ulcer drainage has decreased since he began taking doxycycline. He still has a few days left in his prescribed course. 06/10/17. Seen by Dr. Brandt. The patient does not report pain or increased drainage associated with the chronic left lower leg venous ulcer since his last visit and he continues on docxycycline for the recent cellulitis associated with the ulcer. 06/03/17. Seen by Dr. Brandt. The patient was started on ciprofloxacin for the recent Klebsiella and staph positive wound culture taken last week from the left lower leg venous ulcer. He reports moderate to significant nausea when taking the ciprofloxacin and stopped after 3 days. He does not report fevers or feeling unwell or pain associated with the ulcer today and his arterial Doppler has not yet been scheduled. 05/26/17. Seen by Bharath Krishnan PA-C. This patient is new to our clinic and presents with an ulcer of the left lower leg that has been present for 2 months. He reports that he has previously been on antibiotics and that the ulcer has grown in size over the past 2 months. The ulcer began as a blister associated with a bout of cellulitis in his left leg. Past Medical History This information was obtained from the patient Patient has a medical history of: Osteoarthritis Degenerative Joint Disease Hyperthyroidism Pulmonary Hypertension Chronic nonspecific lung disease Complaints and Symptoms This information was obtained from the patient Patient complains of: General Notes: I have reviewed and concur with the Review of Systems and Past Family Social History documents completed by the clinician, I have reviewed and concur with the Wound Assessment document completed by the clinician Allergic/Immunologic: Frequent Rashes Cardiovascular (Central/Peripheral): Lower extremity (leg) swelling Integumentary (Hair/Skin/Nails): Open Sore Prior Wound History: Drainage, Pain Patient denies complaints or symptoms related to: Cardiovascular (Central): Irregular heart beat Constitutional Symptoms (General Health): Chills, Fever Ear/Nose/Mouth/Throat: Hearing Loss / Aid Gastrointestinal (GI): Nausea / Vomiting Hematologic/Lymphatic: Bleeding / Clotting Disorders, Bleeding Tendency Musculoskeletal: Assistive Devices, Muscle Wasting Neurological: Loss of Protective Sensation, Paralysis Psychiatric: Memory Loss Respiratory: Oxygen Use, Shortness of Breath OBJECTIVE Constitutional BP elevated; Afebrile; Alert and in no distress. Well developed. Alert. Clean appearing.. Height/Length: 71 in (180.34 cm), Weight: 226.7 lbs (103.05 kgs), BMI: 31.6, Temperature: 98.4 ?F (36.89 ?C), Pulse: 81 bpm, Respiratory Rate: 18 breaths/min, Blood Pressure: 149/84 mmHg, Pulse Oximetry: 98 %. Ears, Nose, Mouth, and Throat: No clinically significant hearing loss on informal examination. Respiratory: No respiratory distress. Even respirations and without use of accessory muscles.. Cardiovascular: 1+ left lower extremity edema. Integumentary (Hair, Skin) Moderate periwound erythema with warmth. Refer to appropriate clinician wound documentation for this visit; left lower leg ulcer extends to subcut with base partially covered with pink granulation, remainder fibrin and slough. Wound #1 Left Leg is a chronic Full Thickness Venous Ulcer and has received a status of Not Healed. Subsequent wound encounter measurements are 4cm length x 3cm width x 0.1cm depth, with an area of 12 sq cm and a volume of 1.2 cubic cm. No tunneling has been noted. No sinus tract has been noted. No undermining has been noted. There is a moderate amount of serous drainage noted which has no odor. The patient reports a wound pain of level 3/10. The wound margin is attached. Wound bed has Yes epithelialization, No eschar, Yes slough, Yes bright red, pink, firm granulation. The periwound skin exhibited: Edema, Moist, Maceration, Erythema, Hemosiderosis. The periwound skin did not exhibit: Brawny Induration, Excoriation, Induration, Callus, Crepitus, Fluctuance, Friable, Rash, Dry/Scaly, Atrophie Nocatee, Cyanosis, Ecchymosis, Pallor, Rubor. The temperature of the periwound skin is WNL. Periwound skin presents with s/s of infection. Confirmation Description and Treatment Plan is: Systemic Antibiotics Prescribed. Local Pulse is Palpable. Neurological: Cranial nerves grossly intact with symmetric function normal by informal observation.. ASSESSMENT Active Problems ICD-10 (Encounter Diagnosis) L97.812 - Non-pressure chronic ulcer of other part of right lower leg with fat layer exposed (Encounter Diagnosis) I87.332 - Chronic venous hypertension (idiopathic) with ulcer and inflammation of left lower extremity (Encounter Diagnosis) L03.116 - Cellulitis of left lower limb PROCEDURES Wound #1 Wound #1 (Venous Ulcer) is located on the left leg. A skin/subcutaneous tissue level surgical debridement with a total area debrided of 12 sq cm was performed by Cash Brandt MD. Subcutaneous was removed along with devitalized tissue: exudate and slough. The following instrument(s) were used: curette. Pain control was achieved using 4% Lido. A time out was conducted prior to the start of the procedure. A minimal amount of bleeding was controlled with pressure. The procedure was tolerated well with a pain level of 0 throughout and a pain level of 0 following the procedure. Post Debridement Measurements: 4cm length x 3cm width x 0.2cm depth; with an area of 12 sq cm and a volume of 2.4 cubic cm; Wound #1 (Venous Ulcer) is located on the left leg. A Disposable Wound Vac Application < 50 Sq Cm procedure was performed for the lower left extremity by Cash Brandt MD. A time out was conducted prior to the start of the procedure. The procedure was tolerated well. General Notes: BEATRICE 6x6. Additional Information Muscle fascia or bone removed and sent to pathology?: No PLAN Wound Orders: Wound #1 Left Leg Anesthetic Topical Xylocaine to wound bed. - In clinic only. Cleanser Cleanse Wound: - Normal Saline in clinic. May use distilled water at home. May Shower. - Please avoid getting tap water in wound. Cover while in shower. DO NOT EXPOSE WOUND TO ANY WATER, INCLUDING LAKES, TAP WATER ETC. Dressings Wound Vac: - BEATRICE 6x6. Change Dressing: - Leave in place until next visit. Additional Orders: Compression/Edema Control Single Layer Compression Hose - Tetragrip size F to left leg, on in the morning and off at night. Follow-Up Appointments Return Appointment: - - One week. Other information: If you develop fever, chills, increased pain, drainage, redness or swelling please call our office. If after hours, respond to the ER. Should you experience any significant changes in your wound(s) or have any questions regarding your home care instructions please contact the wound center @ [phone]. If after hours, contact your primary care physician or go to the hospital emergency room. Scribing Attestation I attest, as the nurse, that I scribed these orders for the physician. Medications prescribed: levofloxacin - oral 500 mg tablet once daily for 5 days for cellulitis starting 11/05/2017 General Notes: Please sampler pickup antibiotic prescription and start taking today. I've reviewed the clinician's documentation and agree with the evaluation and plan as written. In addition, the patient's ulcer demonstrates evidence of non-viable devitalized tissue which will continue to benefit from sharp debridement to help promote granulation and expedite healing. Also, I've restarted the patient on levofloxacin due to recurrence of cellulitis associated with the refractory left lower leg venous ulcer and will adjust antibiotics pending the culture results. Negative pressure wound therapy will be utilized to facilitate granulation and removal of exudate and infectious material with the goal of expediting wound healing. Electronic Signature(s) Signed By: Date: Cash Brandt MD 11/06/2017 07:58:24 Entered By: Cash Brandt on 11/06/2017 07:55:07
== END ==
PROVIDERS: PCP Family Medicine Geriatric Medicine; Visit Provider Internal Medicine
DX: I87.312 Chronic venous hypertension (idiopathic) with ulcer of left lower extremity (principal); L97.822 Non-pressure chronic ulcer of other part of left lower leg with fat layer exposed; L03.116 Cellulitis of left lower limb; B95.7 Other staphylococcus as the cause of diseases classified elsewhere; A49.1 Streptococcal infection, unspecified site
CPT/HCPCS: 11042; 97607

== ENCOUNTER → 2017-11-11 10:25 | Outpatient (CLI) | payer MEDICARE, MEDICAID, SELFPAY ==
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
== END ==
PROVIDERS: PCP Family Medicine Geriatric Medicine; Visit Provider Internal Medicine
DX: I87.312 Chronic venous hypertension (idiopathic) with ulcer of left lower extremity (principal); L97.821 Non-pressure chronic ulcer of other part of left lower leg limited to breakdown of skin
CPT/HCPCS: 11042; 97607

== ENCOUNTER → 2017-11-17 10:36 | Outpatient (CLI) | payer MEDICARE, MEDICAID, SELFPAY ==
--- NOTE | 2017-11-17 | OV.WND_ITS ---
Progress Note Details Patient Name: Deangelo José Patient Number: [id number] PatientPatientDate: 11/17/2017 Clinician: Юлия Robison Clinician Cosigner: Norma Samayoa Physician / Music Cataloguer: Cash Brandt SUBJECTIVE Chief Complaint This information was obtained from the patient Venous ulcer on left leg. Allergies Darvocet-N (Severity: Moderate, Reaction: vomiting), Sulfa (Sulfonamide Antibiotics) (Severity: Moderate, Reaction: rash), Rkielez-Kqc-Gna Reductase Inhibitors ( Severity: Moderate, Reaction: arthralgia), Cephalosporins (Reaction: unknown), penicillin (Reaction: unkown) HPI This information was obtained from the patient 11/17/17. Seen by Dr. Brandt. The patient does not report increased pain or drainage associated with the chronic left lower leg venous ulcer since his last visit. The staff report increased erythema and drainage on his wound vac dressing however. 11/11/17. Seen by Dr. Brandt. The patient does not report increased pain or drainage associated with the chronic left lower leg venous ulcer since his last visit and he completed his course of antibiotics that was treating cellulitis associated with the ulcer. 11/05/17. Seen by Dr. Brandt. The patient does not report increased pain or drainage associated with the chronic left lower leg venous ulcer since his last visit. His recent wound culture again grew Staph and group G Strep and he's not currently on antibiotics. 10/20/17. Seen by Dr. Brandt. The patient does not report increased pain or drainage associated with the chronic left lower leg venous ulcer since his last visit. He missed last week's appointment because he overslept and of note he states he went swimming before his appointment today in [place]. The dressing was uncovered when he arrived today. 10/06/17. Seen by Dr. Brandt. The patient reports increased pain associated with the chronic left lower leg venous ulcer since his last visit. He states he missed his last appointment because he slept in. 09/22/17. Seen by Bharath Krishnan PA-C. The patient reports a pruritic rash in the periwound area and stable drainage from his venous ulcer of the left leg. 09/08/17. Seen by Dr. Brandt. The patient does not report increased pain associated with the chronic left lower leg venous ulcer since his last visit and he's been applying topical triamcimolone in the periulcer area to treat the chronic rash. Of note, he also reports a new rash over his right wrist. He's reportedly been diagnosed with diabetes in the past while in the hospital but states he's not being treated for this and does not routinely check his blood sugars. 09/01/17. Seen by Dr. Brandt. The patient reports decreased pain and drainage associated with the chronic left lower leg venous ulcer since his last visit and since starting on doxycycline associated cellulitis. His wound culture grew MSSA and group B Strep. 08/25/2017. Seen by Dr. Brandt. Patient reports increased pain and pruritis associated with chronic left lower leg venous ulcer since his last visit. Drainage has increased also and his wound VAC stopped working 3 days ago. He is not currently on antibiotics and does not report fevers or feeling unwell otherwise. 08/18/17. Seen by Dr. Brandt. The patient does not report increased pain associated with the chronic left lower leg venous ulcer since his last visit and he tolerated the compression wrap that's treating chronic venous hypertension without difficulty. 08/11/17. Seen by Dr. Brandt. The patient does not report increased pain associated with the chronic left lower leg venous ulcer since his last visit. He's not been able to pharmacy picking tech his Rx that was prescribed for cellulitis associated with the ulcer last week however he tolerated his compression wrap that's treating chronic venous hypertension without difficulty. 08/06/17. Seen by Dr. Brandt. The patient does not report increased pain associated with the chronic left lower leg venous ulcer since his last visit however he continues to have significant green drainage on his dressings. His most recent wound culture grew a resistant coag negative Staph and he's been unable to pharmacy picking tech his antibiotics that we prescribed following his last visit. He does not report fevers or feeling unwell in general however. 08/04/17. Seen by Dr. Brandt. The patient does not report increased pain or drainage associated to chronic left lower leg venous ulcers since his last visit. His recent culture grew Diptheroids and a Staph species which is resistant to gentamicin. He's also wearing his compression stocking as recommended to treat chronic venous hypertension in the leg and we' re considering placing a Coban wrap today to further address this issue. 07/28/17. Seen by Dr. Brandt. The patient reports some intermittent pain associated with chronic left lower leg venous ulcer. He has completed his course of doxycycline that was treating the MRSA positive wound culture. His arterial Doppler was also unremarkable and the staff also note increased swelling in the left leg today. 07/21/17. Seen by Dr. Brandt. The patient feels that pain reported last week associated with a chronic left lower leg venous ulcer has improved considerably since started on doxycycline. Of note his culture from the last visit grew MRSA sensitive to doxycycline. He is not reporting any problems regarding the wound VAC, fevers, or feeling unwell otherwise. 07/14/17. Seen by Dr. Brandt. The patient continues on levofloxacin for cellulitis associated with chronic left lower leg venous ulcer since his last visit. He does not reporting or side effects fevers or feeling unwell. He is also tolerating negative pressure wound therapy without difficulty. 07/07/17. Seen by Dr. Brandt. The patient does not report increased pain or drainage associated to chronic left lower leg venous ulcers since his last visit. He is now on levofloxacin for the recent MSSA positive culture and cellulitis associated with the ulcer. He does not report other side effects, fevers, nor feeling unwell in general. 06/30/17. Seen by Dr. Brandt. The patient reports some pain associated with the chronic left lower leg venous ulcer that was first noticeable 3 days ago. He does not report fevers or feeling unwell and is currently not on antibiotics. He is wearing his compression stockings recommended and tolerating a pressure with therapy without difficulty. 06/23/17. Seen by Dr. Brandt. The patient reports some intermittent discomfort associated with the chronic left lower leg venous ulcer since last visit. He is tolerating a negative pressure wound therapy and his compression stocking without difficulty also. 06/16/17. Seen by Bharath Krishnan PA-C. The patient reports that his ulcer drainage has decreased since he began taking doxycycline. He still has a few days left in his prescribed course. 06/10/17. Seen by Dr. Brandt. The patient does not report pain or increased drainage associated with the chronic left lower leg venous ulcer since his last visit and he continues on docxycycline for the recent cellulitis associated with the ulcer. 06/03/17. Seen by Dr. Brandt. The patient was started on ciprofloxacin for the recent Klebsiella and staph positive wound culture taken last week from the left lower leg venous ulcer. He reports moderate to significant nausea when taking the ciprofloxacin and stopped after 3 days. He does not report fevers or feeling unwell or pain associated with the ulcer today and his arterial Doppler has not yet been scheduled. 05/26/17. Seen by Bharath Krishnan PA-C. This patient is new to our clinic and presents with an ulcer of the left lower leg that has been present for 2 months. He reports that he has previously been on antibiotics and that the ulcer has grown in size over the past 2 months. The ulcer began as a blister associated with a bout of cellulitis in his left leg. Past Medical History This information was obtained from the patient Patient has a medical history of: Osteoarthritis Degenerative Joint Disease Hyperthyroidism Pulmonary Hypertension Chronic nonspecific lung disease Complaints and Symptoms This information was obtained from the patient Patient complains of: General Notes: I have reviewed and concur with the Review of Systems and Past Family Social History documents completed by the clinician, I have reviewed and concur with the Wound Assessment document completed by the clinician Allergic/Immunologic: Frequent Rashes Cardiovascular (Central/Peripheral): Lower extremity (leg) swelling Integumentary (Hair/Skin/Nails): Open Sore Prior Wound History: Drainage, Pain Patient denies complaints or symptoms related to: Cardiovascular (Central): Irregular heart beat Constitutional Symptoms (General Health): Chills, Fever Ear/Nose/Mouth/Throat: Hearing Loss / Aid Gastrointestinal (GI): Nausea / Vomiting Hematologic/Lymphatic: Bleeding / Clotting Disorders, Bleeding Tendency Musculoskeletal: Assistive Devices, Muscle Wasting Neurological: Loss of Protective Sensation, Paralysis Psychiatric: Memory Loss Respiratory: Oxygen Use, Shortness of Breath OBJECTIVE Constitutional Vital signs reviewed and noted. Well developed. Alert. Clean appearing.. Height/ Length: 71 in (180.34 cm), Weight: 222.4 lbs (101.09 kgs), BMI: 31, Temperature: 98.3 ?F ( 36.83 ?C), Pulse: 63 bpm, Respiratory Rate: 18 breaths/min, Blood Pressure: 125/86 mmHg, Pulse Oximetry: 97 %. Ears, Nose, Mouth, and Throat: No clinically significant hearing loss on informal examination. Respiratory: No respiratory distress. Even respirations and without use of accessory muscles.. Cardiovascular: 1+ left lower extremity edema. Integumentary (Hair, Skin) Mild periwound erythema with warmth. Refer to appropriate clinician wound documentation for this visit; left lower leg ulcer extends to subcut with base partially covered with pink granulation, remainder fibrin and slough. Wound #1 Left Leg is a chronic Full Thickness Venous Ulcer and has received a status of Not Healed. Subsequent wound encounter measurements are 4.1cm length x 3.4cm width x 0.1cm depth, with an area of 13.94 sq cm and a volume of 1.394 cubic cm. Hypergranulation was noted. No tunneling has been noted. No sinus tract has been noted. No undermining has been noted. There is a moderate amount of serous drainage noted which has no odor. The patient reports a wound pain of level 1/10. The wound margin is attached. Wound bed has Yes epithelialization, No eschar, Yes slough, Yes bright red, pink, firm granulation. The periwound skin exhibited: Edema, Erythema, Hemosiderosis. The periwound skin did not exhibit: Brawny Induration, Excoriation, Induration, Callus, Crepitus, Fluctuance, Friable, Rash, Dry/Scaly, Moist, Maceration, Atrophie Nicollet, Cyanosis, Ecchymosis, Pallor, Rubor. The temperature of the periwound skin is WNL. Periwound skin does not exhibit signs or symptoms of infection. Local Pulse is Palpable. Neurological: Cranial nerves grossly intact with symmetric function normal by informal observation.. ASSESSMENT Active Problems ICD-10 (Encounter Diagnosis) L97.812 - Non-pressure chronic ulcer of other part of right lower leg with fat layer exposed (Encounter Diagnosis) I87.332 - Chronic venous hypertension (idiopathic) with ulcer and inflammation of left lower extremity (Encounter Diagnosis) L03.116 - Cellulitis of left lower limb PROCEDURES Wound #1 Wound #1 (Venous Ulcer) is located on the left leg. A skin/subcutaneous tissue level surgical debridement with a total area debrided of 13.94 sq cm was performed by Cash Brandt MD. Subcutaneous was removed along with devitalized tissue: exudate and slough. The following instrument(s) were used: curette. Pain control was achieved using 4% Lido. A time out was conducted prior to the start of the procedure. A minimal amount of bleeding was controlled with pressure. The procedure was tolerated well with a pain level of 0 throughout and a pain level of 0 following the procedure. Post Debridement Measurements: 4.1cm length x 3.4cm width x 0.2cm depth; with an area of 13.94 sq cm and a volume of 2.788 cubic cm; Additional Information Muscle fascia or bone removed and sent to pathology?: No PLAN Wound Orders: Wound #1 Left Leg Anesthetic Topical Xylocaine to wound bed. - In clinic only. Cleanser Cleanse Wound: - Normal Saline in clinic. May use distilled water at home. May Shower. - Please avoid getting tap water in wound. Cover while in shower. DO NOT EXPOSE WOUND TO ANY WATER, INCLUDING LAKES, TAP WATER ETC. Topical Treatments Antibiotic/Antimicrobial Ointment/Cream. - Triple antibiotic. Dressings Wound Vac: - Laura 6x6 Change Dressing: - Leave in place until next visit. Additional Orders: Follow-Up Appointments Return Appointment: - - One week. Other information: If you develop fever, chills, increased pain, drainage, redness or swelling please call our office. If after hours, respond to the ER. Should you experience any significant changes in your wound(s) or have any questions regarding your home care instructions please contact the wound center @ [phone]. If after hours, contact your primary care physician or go to the hospital emergency room. Scribing Attestation I attest, as the nurse, that I scribed these orders for the physician. Laboratory: Culture Wound Medications prescribed: doxycycline hyclate - oral 100 mg capsule twice daily for 5 days for cellulitis starting 11/17/2017 I've reviewed the clinician's documentation and agree with the evaluation and plan as written. In addition, the patient's ulcer demonstrates evidence of non-viable devitalized tissue which will continue to benefit from sharp debridement to help promote granulation and expedite healing. Also, I've cultured the ulcer and started the patient empirically on doxycycline for cellulitis of the left lower leg. Electronic Signature(s) Signed By: Date: Cash Brandt MD 11/17/2017 16:47:11 Entered By: Cash Brandt on 11/17/2017 16:42:04
== END ==
PROVIDERS: PCP Family Medicine Geriatric Medicine; Visit Provider Internal Medicine
DX: I87.312 Chronic venous hypertension (idiopathic) with ulcer of left lower extremity (principal); L97.822 Non-pressure chronic ulcer of other part of left lower leg with fat layer exposed; L03.116 Cellulitis of left lower limb
CPT/HCPCS: 11042; 87070; 87075; 87077; 87147; 87205; 97607

== ENCOUNTER → 2017-11-24 10:38 | Outpatient (CLI) | payer MEDICARE, MEDICAID, SELFPAY | PROVIDERS: PCP Family Medicine Geriatric Medicine; Visit Provider Internal Medicine | DX: I87.312 Chronic venous hypertension (idiopathic) with ulcer of left lower extremity (principal); L97.822 Non-pressure chronic ulcer of other part of left lower leg with fat layer exposed | CPT/HCPCS: 11042; 97607 ==

== ENCOUNTER → 2017-12-09 13:16 | Outpatient (CLI) | payer MEDICARE, MEDICAID, SELFPAY | PROVIDERS: PCP Family Medicine Geriatric Medicine; Visit Provider Internal Medicine | DX: I87.312 Chronic venous hypertension (idiopathic) with ulcer of left lower extremity (principal); L97.822 Non-pressure chronic ulcer of other part of left lower leg with fat layer exposed; L03.116 Cellulitis of left lower limb | CPT/HCPCS: 11042; 97607 ==

== ENCOUNTER → 2017-12-16 10:00 | Outpatient (CLI) | payer MEDICARE, MEDICAID, SELFPAY ==
--- NOTE | 2017-12-16 | OV.WND_ITS ---
Progress Note Details Patient Name: Deangelo José Patient Number: [id number] PatientPatientDate: 12/16/2017 Clinician: Leigh Arredondo Physician / Utilities Service Investigator: Cash Brandt SUBJECTIVE Chief Complaint This information was obtained from the patient Venous ulcer on left leg. Allergies Darvocet-N (Severity: Moderate, Reaction: vomiting), Sulfa (Sulfonamide Antibiotics) (Severity: Moderate, Reaction: rash), Exfpwes-Ctk-Fww Reductase Inhibitors ( Severity: Moderate, Reaction: arthralgia), Cephalosporins (Reaction: unknown), penicillin (Reaction: unkown) HPI This information was obtained from the patient 12/16/17. Seen by Dr. Brandt. The patient has recently completed a course of antibiotics for left 5th toe cellulitis but feels the pain persists. He's also developed recurrent left lower leg erythema in the periulcer area of the chronic venous ulcer again despite being on antibiotics. He's had refractory cellulitis associated with this ulcer on and off for the past few months which has been responsive to doxycycline. 12/09/14. Seen by Dr. Brandt. The patient does not report increased pain or drainage associated with the chronic left lower leg venous ulcer since his last visit and he's tolerating NPWT without difficulty. He's also been given an Rx by his PCP for left 5th toe cellulitis which has been present for a number of weeks and notably has not resolved despite taking antibiotics for the recurrent left lower leg wound infection and cellulitis. 11/24/17. Seen by Dr. Brandt. The patient's completed his course of doxycycline that was treating the left lower leg cellulitis associated with the chronic left lower leg venous ulcer. He does not report pain in the leg nor increased drainage and tolerated NPWT without difficulty. 11/17/17. Seen by Dr. Brandt. The patient does not report increased pain or drainage associated with the chronic left lower leg venous ulcer since his last visit. The staff report increased erythema and drainage on his wound vac dressing however. 11/11/17. Seen by Dr. Brandt. The patient does not report increased pain or drainage associated with the chronic left lower leg venous ulcer since his last visit and he completed his course of antibiotics that was treating cellulitis associated with the ulcer. 11/05/17. Seen by Dr. Brandt. The patient does not report increased pain or drainage associated with the chronic left lower leg venous ulcer since his last visit. His recent wound culture again grew Staph and group G Strep and he's not currently on antibiotics. 10/20/17. Seen by Dr. Brandt. The patient does not report increased pain or drainage associated with the chronic left lower leg venous ulcer since his last visit. He missed last week's appointment because he overslept and of note he states he went swimming before his appointment today in [place]. The dressing was uncovered when he arrived today. 10/06/17. Seen by Dr. Brandt. The patient reports increased pain associated with the chronic left lower leg venous ulcer since his last visit. He states he missed his last appointment because he slept in. 09/22/17. Seen by Bharath Krishnan PA-C. The patient reports a pruritic rash in the periwound area and stable drainage from his venous ulcer of the left leg. 09/08/17. Seen by Dr. Brandt. The patient does not report increased pain associated with the chronic left lower leg venous ulcer since his last visit and he's been applying topical triamcimolone in the periulcer area to treat the chronic rash. Of note, he also reports a new rash over his right wrist. He's reportedly been diagnosed with diabetes in the past while in the hospital but states he's not being treated for this and does not routinely check his blood sugars. 09/01/17. Seen by Dr. Brandt. The patient reports decreased pain and drainage associated with the chronic left lower leg venous ulcer since his last visit and since starting on doxycycline associated cellulitis. His wound culture grew MSSA and group B Strep. 08/25/2017. Seen by Dr. Brnadt. Patient reports increased pain and pruritis associated with chronic left lower leg venous ulcer since his last visit. Drainage has increased also and his wound VAC stopped working 3 days ago. He is not currently on antibiotics and does not report fevers or feeling unwell otherwise. 08/18/17. Seen by Dr. Brandt. The patient does not report increased pain associated with the chronic left lower leg venous ulcer since his last visit and he tolerated the compression wrap that's treating chronic venous hypertension without difficulty. 08/11/17. Seen by Dr. Brandt. The patient does not report increased pain associated with the chronic left lower leg venous ulcer since his last visit. 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 08/06/17. Seen by Dr. Brandt. The patient does not report increased pain associated with the chronic left lower leg venous ulcer since his last visit however he continues to have significant green drainage on his dressings. 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 He does not report fevers or feeling unwell in general however. 08/04/17. Seen by Dr. Brandt. The patient does not report increased pain or drainage associated to chronic left lower leg venous ulcers since his last visit. His recent culture grew Diptheroids and a Staph species which is resistant to gentamicin. He's also wearing his compression stocking as recommended to treat chronic venous hypertension in the leg and we' re considering placing a Coban wrap today to further address this issue. 07/28/17. Seen by Dr. Brandt. The patient reports some intermittent pain associated with chronic left lower leg venous ulcer. He has completed his course of doxycycline that was treating the MRSA positive wound culture. His arterial Doppler was also unremarkable and the staff also note increased swelling in the left leg today. 07/21/17. Seen by Dr. Brandt. The patient feels that pain reported last week associated with a chronic left lower leg venous ulcer has improved considerably since started on doxycycline. Of note his culture from the last visit grew MRSA sensitive to doxycycline. He is not reporting any problems regarding the wound VAC, fevers, or feeling unwell otherwise. 07/14/17. Seen by Dr. Brandt. The patient continues on levofloxacin for cellulitis associated with chronic left lower leg venous ulcer since his last visit. He does not reporting or side effects fevers or feeling unwell. He is also tolerating negative pressure wound therapy without difficulty. 07/07/17. Seen by Dr. Brandt. The patient does not report increased pain or drainage associated to chronic left lower leg venous ulcers since his last visit. He is now on levofloxacin for the recent MSSA positive culture and cellulitis associated with the ulcer. He does not report other side effects, fevers, nor feeling unwell in general. 06/30/17. Seen by Dr. Brandt. The patient reports some pain associated with the chronic left lower leg venous ulcer that was first noticeable 3 days ago. He does not report fevers or feeling unwell and is currently not on antibiotics. He is wearing his compression stockings recommended and tolerating a pressure with therapy without difficulty. 06/23/17. Seen by Dr. Brandt. The patient reports some intermittent discomfort associated with the chronic left lower leg venous ulcer since last visit. He is tolerating a negative pressure wound therapy and his compression stocking without difficulty also. 06/16/17. Seen by Bharath Krishnan PA-C. The patient reports that his ulcer drainage has decreased since he began taking doxycycline. He still has a few days left in his prescribed course. 06/10/17. Seen by Dr. Brandt. The patient does not report pain or increased drainage associated with the chronic left lower leg venous ulcer since his last visit and he continues on docxycycline for the recent cellulitis associated with the ulcer. 06/03/17. Seen by Dr. Brandt. The patient was started on ciprofloxacin for the recent Klebsiella and staph positive wound culture taken last week from the left lower leg venous ulcer. He reports moderate to significant nausea when taking the ciprofloxacin and stopped after 3 days. He does not report fevers or feeling unwell or pain associated with the ulcer today and his arterial Doppler has not yet been scheduled. 05/26/17. Seen by Bharath Krishnan PA-C. This patient is new to our clinic and presents with an ulcer of the left lower leg that has been present for 2 months. He reports that he has previously been on antibiotics and that the ulcer has grown in size over the past 2 months. The ulcer began as a blister associated with a bout of cellulitis in his left leg. Past Medical History This information was obtained from the patient Patient has a medical history of: Osteoarthritis Degenerative Joint Disease Hyperthyroidism Pulmonary Hypertension Chronic nonspecific lung disease Complaints and Symptoms This information was obtained from the patient Patient complains of: General Notes: I have reviewed and concur with the Review of Systems and Past Family Social History documents completed by the clinician, I have reviewed and concur with the Wound Assessment document completed by the clinician Allergic/Immunologic: Frequent Rashes Cardiovascular (Central/Peripheral): Lower extremity (leg) swelling Integumentary (Hair/Skin/Nails): Open Sore Prior Wound History: Drainage, Pain Patient denies complaints or symptoms related to: Cardiovascular (Central): Irregular heart beat Constitutional Symptoms (General Health): Chills, Fever Ear/Nose/Mouth/Throat: Hearing Loss / Aid Gastrointestinal (GI): Nausea / Vomiting Hematologic/Lymphatic: Bleeding / Clotting Disorders, Bleeding Tendency Musculoskeletal: Assistive Devices, Muscle Wasting Neurological: Loss of Protective Sensation, Paralysis Psychiatric: Memory Loss Respiratory: Oxygen Use, Shortness of Breath OBJECTIVE Constitutional BP normal; Low grade fever; Alert and in no distress. Well developed. Alert. Clean appearing.. Height/Length: 71 in (180.34 cm), Weight: 220 lbs (100 kgs), BMI: 30.7, Temperature: 99.2 ? F (37.33 ?C), Pulse: 96 bpm, Respiratory Rate: 18 breaths/min, Blood Pressure: 127/75 mmHg, Pulse Oximetry: 95 %. Ears, Nose, Mouth, and Throat: No clinically significant hearing loss on informal examination. Respiratory: No respiratory distress. Even respirations and without use of accessory muscles.. Cardiovascular: Pedal pulses 2+ on affected limb. 1+ left lower extremity edema. Musculoskeletal: Previously documented left 5th toe erythema and swelling has resolved. Integumentary (Hair, Skin) Moderate periwound erythema with warmth. Refer to appropriate clinician wound documentation for this visit; left lower leg ulcer extends to subcut with base partially covered with pink granulation, remainder fibrin and slough. Wound #1 Left Leg is a chronic Full Thickness Venous Ulcer and has received a status of Not Healed. Subsequent wound encounter measurements are 4.2cm length x 3.4cm width x 0.1cm depth, with an area of 14.28 sq cm and a volume of 1.428 cubic cm. Hypergranulation was noted. No tunneling has been noted. No sinus tract has been noted. No undermining has been noted. There is a moderate amount of serous drainage noted which has no odor. The patient reports a wound pain of level 2/10. The wound margin is attached. Wound bed has Yes epithelialization, No eschar, Yes slough, Yes bright red, pink, firm granulation. The periwound skin exhibited: Edema, Moist, Erythema, Hemosiderosis. The periwound skin did not exhibit: Brawny Induration, Excoriation, Induration, Callus, Crepitus, Fluctuance, Friable, Rash, Dry/Scaly, Maceration, Atrophie [place], Cyanosis, Ecchymosis, Pallor, Rubor. The temperature of the periwound skin is WNL. Periwound skin presents with s/s of infection. Confirmation Description and Treatment Plan is: Signs and Symptoms Present. Local Pulse is Palpable. Neurological: Cranial nerves grossly intact with symmetric function normal by informal observation.. ASSESSMENT Active Problems ICD-10 (Encounter Diagnosis) L97.812 - Non-pressure chronic ulcer of other part of right lower leg with fat layer exposed (Encounter Diagnosis) I87.332 - Chronic venous hypertension (idiopathic) with ulcer and inflammation of left lower extremity (Encounter Diagnosis) L03.116 - Cellulitis of left lower limb (Encounter Diagnosis) M79.672 - Pain in left foot PROCEDURES Wound #1 Wound #1 (Venous Ulcer) is located on the left leg. A skin/subcutaneous tissue level surgical debridement with a total area debrided of 14.28 sq cm was performed by Cash Brandt MD. Subcutaneous was removed along with devitalized tissue: slough. The following instrument(s) were used: curette. Pain control was achieved using 4% [place]. A time out was conducted prior to the start of the procedure. A minimal amount of bleeding was controlled with n/a. The procedure was tolerated well with a pain level of 0 throughout and a pain level of 0 following the procedure. Post Debridement Measurements: 4.2cm length x 3.4cm width x 0.2cm depth; with an area of 14.28 sq cm and a volume of 2.856 cubic cm; Additional Information Muscle fascia or bone removed and sent to pathology?: No PLAN Wound Orders: Wound #1 Left Leg Anesthetic Topical Xylocaine to wound bed. - In clinic only. Cleanser Cleanse Wound: - Normal Saline in clinic. May use distilled water at home. May Shower. - Please avoid getting tap water in wound. Cover while in shower. DO NOT EXPOSE WOUND TO ANY WATER, INCLUDING LAKES, TAP WATER ETC. Topical Treatments Antibiotic/Antimicrobial Ointment/Cream. - Gentamicin ointment Dressings Primary dressing: - Bordered Foam Change Dressing: - Daily Additional Orders: Follow-Up Appointments Return Appointment: - - One week. Other information: If you develop fever, chills, increased pain, drainage, redness or swelling please call our office. If after hours, respond to the ER. Should you experience any significant changes in your wound(s) or have any questions regarding your home care instructions please contact the wound center @ [phone]. If after hours, contact your primary care physician or go to the hospital emergency room. Scribing Attestation I attest, as the nurse, that I scribed these orders for the physician. 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 I've reviewed the clinician's documentation and agree with the evaluation and plan as written. In addition, the patient's ulcer demonstrates evidence of non-viable devitalized tissue which will continue to benefit from sharp debridement to help promote granulation and expedite healing. Also, I've restarted the patient on doxycycline for cellulitis of the left lower leg and will adjust antibiotics accordingly. He'll also liaise with his PCP regarding a podiatry referral to evaluate his left 5th toe pain. Electronic Signature(s) Signed By: Date: Cash Brandt MD 12/17/2017 06:31:52 Entered By: Cash Brandt on 12/17/2017 06:24:51
== END ==
PROVIDERS: PCP Family Medicine Geriatric Medicine; Visit Provider Internal Medicine
DX: I87.312 Chronic venous hypertension (idiopathic) with ulcer of left lower extremity (principal); L97.822 Non-pressure chronic ulcer of other part of left lower leg with fat layer exposed; M79.672 Pain in left foot; L03.116 Cellulitis of left lower limb
CPT/HCPCS: 11042; 87070; 87075; 87077; 87186; 87205

== ENCOUNTER → 2017-12-21 10:41 | Outpatient (CLI) | payer MEDICARE, MEDICAID, SELFPAY ==
--- NOTE | 2017-12-21 | OV.WND_ITS ---
Progress Note Details Patient Name: Deangelo José Patient Number: [id number] PatientPatientDate: 12/21/2017 Clinician: Leigh Arredondo Physician / Foam Rubber Molder: Cash Brandt SUBJECTIVE Chief Complaint This information was obtained from the patient Venous ulcer on left leg. Allergies Darvocet-N (Severity: Moderate, Reaction: vomiting), Sulfa (Sulfonamide Antibiotics) (Severity: Moderate, Reaction: rash), Erhrcav-Rqs-Weo Reductase Inhibitors ( Severity: Moderate, Reaction: arthralgia), Cephalosporins (Reaction: unknown), penicillin (Reaction: unkown) HPI This information was obtained from the patient 12/21/17. Seen by Dr. Brandt. The patient does not report increased pain or drainage associated with the chronic left lower leg venous ulcer since his last visit and he continues on doxycycline for cellulitis of the leg and feels this has improved. 12/16/17. Seen by Dr. Brandt. The patient has recently completed a course of antibiotics for left 5th toe cellulitis but feels the pain persists. He's also developed recurrent left lower leg erythema in the periulcer area of the chronic venous ulcer again despite being on antibiotics. He's had refractory cellulitis associated with this ulcer on and off for the past few months which has been responsive to doxycycline. 12/09/14. Seen by Dr. Brandt. The patient does not report increased pain or drainage associated with the chronic left lower leg venous ulcer since his last visit and he's tolerating NPWT without difficulty. He's also been given an Rx by his PCP for left 5th toe cellulitis which has been present for a number of weeks and notably has not resolved despite taking antibiotics for the recurrent left lower leg wound infection and cellulitis. 11/24/17. Seen by Dr. Brandt. The patient's completed his course of doxycycline that was treating the left lower leg cellulitis associated with the chronic left lower leg venous ulcer. He does not report pain in the leg nor increased drainage and tolerated NPWT without difficulty. 11/17/17. Seen by Dr. Brandt. The patient does not report increased pain or drainage associated with the chronic left lower leg venous ulcer since his last visit. The staff report increased erythema and drainage on his wound vac dressing however. 11/11/17. Seen by Dr. Brandt. The patient does not report increased pain or drainage associated with the chronic left lower leg venous ulcer since his last visit and he completed his course of antibiotics that was treating cellulitis associated with the ulcer. 11/05/17. Seen by Dr. Brandt. The patient does not report increased pain or drainage associated with the chronic left lower leg venous ulcer since his last visit. His recent wound culture again grew Staph and group G Strep and he's not currently on antibiotics. 10/20/17. Seen by Dr. Brandt. The patient does not report increased pain or drainage associated with the chronic left lower leg venous ulcer since his last visit. He missed last week's appointment because he overslept and of note he states he went swimming before his appointment today in [place]. The dressing was uncovered when he arrived today. 10/06/17. Seen by Dr. Brandt. The patient reports increased pain associated with the chronic left lower leg venous ulcer since his last visit. He states he missed his last appointment because he slept in. 09/22/17. Seen by Bharath Krishnan PA-C. The patient reports a pruritic rash in the periwound area and stable drainage from his venous ulcer of the left leg. 09/08/17. Seen by Dr. Brandt. The patient does not report increased pain associated with the chronic left lower leg venous ulcer since his last visit and he's been applying topical triamcimolone in the periulcer area to treat the chronic rash. Of note, he also reports a new rash over his right wrist. He's reportedly been diagnosed with diabetes in the past while in the hospital but states he's not being treated for this and does not routinely check his blood sugars. 09/01/17. Seen by Dr. Brandt. The patient reports decreased pain and drainage associated with the chronic left lower leg venous ulcer since his last visit and since starting on doxycycline associated cellulitis. His wound culture grew MSSA and group B Strep. 08/25/2017. Seen by Dr. Brandt. Patient reports increased pain and pruritis associated with chronic left lower leg venous ulcer since his last visit. Drainage has increased also and his wound VAC stopped working 3 days ago. He is not currently on antibiotics and does not report fevers or feeling unwell otherwise. 08/18/17. Seen by Dr. Brandt. The patient does not report increased pain associated with the chronic left lower leg venous ulcer since his last visit and he tolerated the compression wrap that's treating chronic venous hypertension without difficulty. 08/11/17. Seen by Dr. Brandt. The patient does not report increased pain associated with the chronic left lower leg venous ulcer since his last visit. He's not been able to pick out hand his Rx that was prescribed for cellulitis associated with the ulcer last week however he tolerated his compression wrap that's treating chronic venous hypertension without difficulty. 08/06/17. Seen by Dr. Brandt. The patient does not report increased pain associated with the chronic left lower leg venous ulcer since his last visit however he continues to have significant green drainage on his dressings. His most recent wound culture grew a resistant coag negative Staph and he's been unable to pick out hand his antibiotics that we prescribed following his last visit. He does not report fevers or feeling unwell in general however. 08/04/17. Seen by Dr. Brandt. The patient does not report increased pain or drainage associated to chronic left lower leg venous ulcers since his last visit. His recent culture grew Diptheroids and a Staph species which is resistant to gentamicin. He's also wearing his compression stocking as recommended to treat chronic venous hypertension in the leg and we' re considering placing a Coban wrap today to further address this issue. 07/28/17. Seen by Dr. Brandt. The patient reports some intermittent pain associated with chronic left lower leg venous ulcer. He has completed his course of doxycycline that was treating the MRSA positive wound culture. His arterial Doppler was also unremarkable and the staff also note increased swelling in the left leg today. 07/21/17. Seen by Dr. Brandt. The patient feels that pain reported last week associated with a chronic left lower leg venous ulcer has improved considerably since started on doxycycline. Of note his culture from the last visit grew MRSA sensitive to doxycycline. He is not reporting any problems regarding the wound VAC, fevers, or feeling unwell otherwise. 07/14/17. Seen by Dr. Brandt. The patient continues on levofloxacin for cellulitis associated with chronic left lower leg venous ulcer since his last visit. He does not reporting or side effects fevers or feeling unwell. He is also tolerating negative pressure wound therapy without difficulty. 07/07/17. Seen by Dr. Brandt. The patient does not report increased pain or drainage associated to chronic left lower leg venous ulcers since his last visit. He is now on levofloxacin for the recent MSSA positive culture and cellulitis associated with the ulcer. He does not report other side effects, fevers, nor feeling unwell in general. 06/30/17. Seen by Dr. Brandt. The patient reports some pain associated with the chronic left lower leg venous ulcer that was first noticeable 3 days ago. He does not report fevers or feeling unwell and is currently not on antibiotics. He is wearing his compression stockings recommended and tolerating a pressure with therapy without difficulty. 06/23/17. Seen by Dr. Brandt. The patient reports some intermittent discomfort associated with the chronic left lower leg venous ulcer since last visit. He is tolerating a negative pressure wound therapy and his compression stocking without difficulty also. 06/16/17. Seen by Bharath Krishnan PA-C. The patient reports that his ulcer drainage has decreased since he began taking doxycycline. He still has a few days left in his prescribed course. 06/10/17. Seen by Dr. Brandt. The patient does not report pain or increased drainage associated with the chronic left lower leg venous ulcer since his last visit and he continues on docxycycline for the recent cellulitis associated with the ulcer. 06/03/17. Seen by Dr. Brandt. The patient was started on ciprofloxacin for the recent Klebsiella and staph positive wound culture taken last week from the left lower leg venous ulcer. He reports moderate to significant nausea when taking the ciprofloxacin and stopped after 3 days. He does not report fevers or feeling unwell or pain associated with the ulcer today and his arterial Doppler has not yet been scheduled. 05/26/17. Seen by Bharath Krishnan PA-C. This patient is new to our clinic and presents with an ulcer of the left lower leg that has been present for 2 months. He reports that he has previously been on antibiotics and that the ulcer has grown in size over the past 2 months. The ulcer began as a blister associated with a bout of cellulitis in his left leg. Past Medical History This information was obtained from the patient Patient has a medical history of: Osteoarthritis Degenerative Joint Disease Hyperthyroidism Pulmonary Hypertension Chronic nonspecific lung disease Complaints and Symptoms This information was obtained from the patient Patient complains of: General Notes: I have reviewed and concur with the Review of Systems and Past Family Social History documents completed by the clinician, I have reviewed and concur with the Wound Assessment document completed by the clinician Allergic/Immunologic: Frequent Rashes Cardiovascular (Central/Peripheral): Lower extremity (leg) swelling Integumentary (Hair/Skin/Nails): Open Sore Prior Wound History: Drainage, Pain Patient denies complaints or symptoms related to: Cardiovascular (Central): Irregular heart beat Constitutional Symptoms (General Health): Chills, Fever Ear/Nose/Mouth/Throat: Hearing Loss / Aid Gastrointestinal (GI): Nausea / Vomiting Hematologic/Lymphatic: Bleeding / Clotting Disorders, Bleeding Tendency Musculoskeletal: Assistive Devices, Muscle Wasting Neurological: Loss of Protective Sensation, Paralysis Psychiatric: Memory Loss Respiratory: Oxygen Use, Shortness of Breath OBJECTIVE Constitutional BP elevated; Afebrile; Alert and in no distress. Well developed. Alert. Clean appearing.. Height/Length: 71 in (180.34 cm), Weight: 219 lbs (99.55 kgs), BMI: 30.5, Temperature: 98.2 ?F (36.78 ?C), Pulse: 88 bpm, Respiratory Rate: 18 breaths/min, Blood Pressure: 157/65 mmHg, Pulse Oximetry: 92 %. Ears, Nose, Mouth, and Throat: No clinically significant hearing loss on informal examination. Cardiovascular: 1+ left lower extremity edema. Integumentary (Hair, Skin) Mild periwound erythema without warmth; much improved from last visit. Refer to appropriate clinician wound documentation for this visit; left lower leg ulcer extends to subcut with base partially covered with pink granulation, remainder fibrin and slough. Wound #1 Left Leg is a chronic Full Thickness Venous Ulcer and has received a status of Not Healed. Subsequent wound encounter measurements are 4.1cm length x 3cm width x 0.1cm depth, with an area of 12.3 sq cm and a volume of 1.23 cubic cm. Hypergranulation was noted. No tunneling has been noted. No sinus tract has been noted. No undermining has been noted. There is a moderate amount of serous drainage noted which has no odor. The patient reports a wound pain of level 2/10. The wound margin is attached. Wound bed has Yes epithelialization, No eschar, Yes slough, Yes bright red, pink, firm granulation. The periwound skin exhibited: Edema, Moist, Erythema, Hemosiderosis. The periwound skin did not exhibit: Brawny Induration, Excoriation, Induration, Callus, Crepitus, Fluctuance, Friable, Rash, Dry/Scaly, Maceration, Atrophie Jennifer, Cyanosis, Ecchymosis, Pallor, Rubor. The temperature of the periwound skin is WNL. Periwound skin presents with s/s of infection. Confirmation Description and Treatment Plan is: Signs and Symptoms Present. Local Pulse is Palpable. Neurological: Cranial nerves grossly intact with symmetric function normal by informal observation.. ASSESSMENT Active Problems ICD-10 (Encounter Diagnosis) L97.812 - Non-pressure chronic ulcer of other part of right lower leg with fat layer exposed (Encounter Diagnosis) I87.332 - Chronic venous hypertension (idiopathic) with ulcer and inflammation of left lower extremity (Encounter Diagnosis) L03.116 - Cellulitis of left lower limb PROCEDURES Wound #1 Wound #1 (Venous Ulcer) is located on the left leg. A skin/subcutaneous tissue level surgical debridement with a total area debrided of 12.3 sq cm was performed by Cash Brandt MD. Subcutaneous was removed along with devitalized tissue: slough. The following instrument(s) were used: curette. Pain control was achieved using 4% Lido. A time out was conducted prior to the start of the procedure. A minimal amount of bleeding was controlled with n/a. The procedure was tolerated well with a pain level of 0 throughout and a pain level of 0 following the procedure. Post Debridement Measurements: 4.1cm length x 3cm width x 0.2cm depth; with an area of 12.3 sq cm and a volume of 2.46 cubic cm; Wound #1 (Venous Ulcer) is located on the left leg. A Disposable Wound Vac Application < 50 Sq Cm procedure was performed for the lower left extremity by Cash Brandt MD. A time out was conducted prior to the start of the procedure. The procedure was tolerated well. General Notes: BEATRICE 6x6. Additional Information Muscle fascia or bone removed and sent to pathology?: No PLAN Wound Orders: Wound #1 Left Leg Anesthetic Topical Xylocaine to wound bed. - In clinic only. Cleanser Cleanse Wound: - Normal Saline in clinic. May use distilled water at home. May Shower. - Please avoid getting tap water in wound. Cover while in shower. DO NOT EXPOSE WOUND TO ANY WATER, INCLUDING LAKES, TAP WATER ETC. Dressings Negative Pressure Wound Therapy - BEATRICE 6x5 Additional Orders: Follow-Up Appointments Return Appointment: - - One week. Other information: If you develop fever, chills, increased pain, drainage, redness or swelling please call our office. If after hours, respond to the ER. Should you experience any significant changes in your wound(s) or have any questions regarding your home care instructions please contact the wound center @ [phone]. If after hours, contact your primary care physician or go to the hospital emergency room. Scribing Attestation I attest, as the nurse, that I scribed these orders for the physician. I've reviewed the clinician's documentation and agree with the evaluation and plan as written. In addition, the patient's ulcer demonstrates evidence of non-viable devitalized tissue which will continue to benefit from sharp debridement to help promote granulation and expedite healing. Negative pressure wound therapy will be utilized to facilitate granulation and removal of exudate and infectious material with the goal of expediting wound healing. Also, the patient will complete another 5 days course of doxycycline for cellulitis of the left lower leg. Electronic Signature(s) Signed By: Date: Cash Brandt MD 12/21/2017 17:46:20 Entered By: Cash Brandt on 12/21/2017 17:42:56
== END ==
PROVIDERS: PCP Family Medicine Geriatric Medicine; Visit Provider Internal Medicine
DX: I87.312 Chronic venous hypertension (idiopathic) with ulcer of left lower extremity (principal); L97.822 Non-pressure chronic ulcer of other part of left lower leg with fat layer exposed; L03.116 Cellulitis of left lower limb
CPT/HCPCS: 11042; 97607

== ENCOUNTER → 2017-12-29 09:41 | Outpatient (CLI) | payer MEDICARE, MEDICAID, SELFPAY ==
--- NOTE | 2017-12-29 | OV.WND_ITS ---
Progress Note Details Patient Name: Deangelo José Patient Number: [id number] PatientPatientDate: 12/29/2017 Clinician: Lillian Hayden Clinician Cosigner: Norma Samayoa Physician / Supervising Editor News Reel: Cash Brandt SUBJECTIVE Chief Complaint This information was obtained from the patient Venous ulcer on left leg. Allergies Darvocet-N (Severity: Moderate, Reaction: vomiting), Sulfa (Sulfonamide Antibiotics) (Severity: Moderate, Reaction: rash), Mkjwydw-Lpz-Rwt Reductase Inhibitors ( Severity: Moderate, Reaction: arthralgia), Cephalosporins (Reaction: unknown), penicillin (Reaction: unkown) HPI This information was obtained from the patient 12/29/17. Seen by Dr. Brandt. The patient does not report increased pain or drainage associated with the chronic left lower leg venous ulcer since his last visit and he continues on doxycycline for cellulitis of the leg without reporting adverse side effects. 12/21/17. Seen by Dr. Brandt. The patient does not report increased pain or drainage associated with the chronic left lower leg venous ulcer since his last visit and he continues on doxycycline for cellulitis of the leg and feels this has improved. 12/16/17. Seen by Dr. Brandt. The patient has recently completed a course of antibiotics for left 5th toe cellulitis but feels the pain persists. He's also developed recurrent left lower leg erythema in the periulcer area of the chronic venous ulcer again despite being on antibiotics. He's had refractory cellulitis associated with this ulcer on and off for the past few months which has been responsive to doxycycline. 12/09/14. Seen by Dr. Brandt. The patient does not report increased pain or drainage associated with the chronic left lower leg venous ulcer since his last visit and he's tolerating NPWT without difficulty. He's also been given an Rx by his PCP for left 5th toe cellulitis which has been present for a number of weeks and notably has not resolved despite taking antibiotics for the recurrent left lower leg wound infection and cellulitis. 11/24/17. Seen by Dr. Brandt. The patient's completed his course of doxycycline that was treating the left lower leg cellulitis associated with the chronic left lower leg venous ulcer. He does not report pain in the leg nor increased drainage and tolerated NPWT without difficulty. 11/17/17. Seen by Dr. Brandt. The patient does not report increased pain or drainage associated with the chronic left lower leg venous ulcer since his last visit. The staff report increased erythema and drainage on his wound vac dressing however. 11/11/17. Seen by Dr. Brandt. The patient does not report increased pain or drainage associated with the chronic left lower leg venous ulcer since his last visit and he completed his course of antibiotics that was treating cellulitis associated with the ulcer. 11/05/17. Seen by Dr. Brandt. The patient does not report increased pain or drainage associated with the chronic left lower leg venous ulcer since his last visit. His recent wound culture again grew Staph and group G Strep and he's not currently on antibiotics. 10/20/17. Seen by Dr. Brandt. The patient does not report increased pain or drainage associated with the chronic left lower leg venous ulcer since his last visit. He missed last week's appointment because he overslept and of note he states he went swimming before his appointment today in [place]. The dressing was uncovered when he arrived today. 10/06/17. Seen by Dr. Brandt. The patient reports increased pain associated with the chronic left lower leg venous ulcer since his last visit. He states he missed his last appointment because he slept in. 09/22/17. Seen by Bharath Krishnan PA-C. The patient reports a pruritic rash in the periwound area and stable drainage from his venous ulcer of the left leg. 09/08/17. Seen by Dr. Brandt. The patient does not report increased pain associated with the chronic left lower leg venous ulcer since his last visit and he's been applying topical triamcimolone in the periulcer area to treat the chronic rash. Of note, he also reports a new rash over his right wrist. He's reportedly been diagnosed with diabetes in the past while in the hospital but states he's not being treated for this and does not routinely check his blood sugars. 09/01/17. Seen by Dr. Brandt. The patient reports decreased pain and drainage associated with the chronic left lower leg venous ulcer since his last visit and since starting on doxycycline associated cellulitis. His wound culture grew MSSA and group B Strep. 08/25/2017. Seen by Dr. Brandt. Patient reports increased pain and pruritis associated with chronic left lower leg venous ulcer since his last visit. Drainage has increased also and his wound VAC stopped working 3 days ago. He is not currently on antibiotics and does not report fevers or feeling unwell otherwise. 08/18/17. Seen by Dr. Brandt. The patient does not report increased pain associated with the chronic left lower leg venous ulcer since his last visit and he tolerated the compression wrap that's treating chronic venous hypertension without difficulty. 08/11/17. Seen by Dr. Brandt. The patient does not report increased pain associated with the chronic left lower leg venous ulcer since his last visit. He's not been able to brass pickler his Rx that was prescribed for cellulitis associated with the ulcer last week however he tolerated his compression wrap that's treating chronic venous hypertension without difficulty. 08/06/17. Seen by Dr. Brandt. The patient does not report increased pain associated with the chronic left lower leg venous ulcer since his last visit however he continues to have significant green drainage on his dressings. His most recent wound culture grew a resistant coag negative Staph and he's been unable to brass pickler his antibiotics that we prescribed following his last visit. He does not report fevers or feeling unwell in general however. 08/04/17. Seen by Dr. Brandt. The patient does not report increased pain or drainage associated to chronic left lower leg venous ulcers since his last visit. His recent culture grew Diptheroids and a Staph species which is resistant to gentamicin. He's also wearing his compression stocking as recommended to treat chronic venous hypertension in the leg and we' re considering placing a Coban wrap today to further address this issue. 07/28/17. Seen by Dr. Brandt. The patient reports some intermittent pain associated with chronic left lower leg venous ulcer. He has completed his course of doxycycline that was treating the MRSA positive wound culture. His arterial Doppler was also unremarkable and the staff also note increased swelling in the left leg today. 07/21/17. Seen by Dr. Brandt. The patient feels that pain reported last week associated with a chronic left lower leg venous ulcer has improved considerably since started on doxycycline. Of note his culture from the last visit grew MRSA sensitive to doxycycline. He is not reporting any problems regarding the wound VAC, fevers, or feeling unwell otherwise. 07/14/17. Seen by Dr. Brandt. The patient continues on levofloxacin for cellulitis associated with chronic left lower leg venous ulcer since his last visit. He does not reporting or side effects fevers or feeling unwell. He is also tolerating negative pressure wound therapy without difficulty. 07/07/17. Seen by Dr. Brandt. The patient does not report increased pain or drainage associated to chronic left lower leg venous ulcers since his last visit. He is now on levofloxacin for the recent MSSA positive culture and cellulitis associated with the ulcer. He does not report other side effects, fevers, nor feeling unwell in general. 06/30/17. Seen by Dr. Brandt. The patient reports some pain associated with the chronic left lower leg venous ulcer that was first noticeable 3 days ago. He does not report fevers or feeling unwell and is currently not on antibiotics. He is wearing his compression stockings recommended and tolerating a pressure with therapy without difficulty. 06/23/17. Seen by Dr. Brandt. The patient reports some intermittent discomfort associated with the chronic left lower leg venous ulcer since last visit. He is tolerating a negative pressure wound therapy and his compression stocking without difficulty also. 06/16/17. Seen by Bharath Krishnan PA-C. The patient reports that his ulcer drainage has decreased since he began taking doxycycline. He still has a few days left in his prescribed course. 06/10/17. Seen by Dr. Brandt. The patient does not report pain or increased drainage associated with the chronic left lower leg venous ulcer since his last visit and he continues on docxycycline for the recent cellulitis associated with the ulcer. 06/03/17. Seen by Dr. Brandt. The patient was started on ciprofloxacin for the recent Klebsiella and staph positive wound culture taken last week from the left lower leg venous ulcer. He reports moderate to significant nausea when taking the ciprofloxacin and stopped after 3 days. He does not report fevers or feeling unwell or pain associated with the ulcer today and his arterial Doppler has not yet been scheduled. 05/26/17. Seen by Bharath Krishnan PA-C. This patient is new to our clinic and presents with an ulcer of the left lower leg that has been present for 2 months. He reports that he has previously been on antibiotics and that the ulcer has grown in size over the past 2 months. The ulcer began as a blister associated with a bout of cellulitis in his left leg. Past Medical History This information was obtained from the patient Patient has a medical history of: Osteoarthritis Degenerative Joint Disease Hyperthyroidism Pulmonary Hypertension Chronic nonspecific lung disease Complaints and Symptoms This information was obtained from the patient Patient complains of: General Notes: I have reviewed and concur with the Review of Systems and Past Family Social History documents completed by the clinician, I have reviewed and concur with the Wound Assessment document completed by the clinician Allergic/Immunologic: Frequent Rashes Cardiovascular (Central/Peripheral): Lower extremity (leg) swelling Integumentary (Hair/Skin/Nails): Open Sore Prior Wound History: Drainage, Pain Patient denies complaints or symptoms related to: Cardiovascular (Central): Irregular heart beat Constitutional Symptoms (General Health): Chills, Fever Ear/Nose/Mouth/Throat: Hearing Loss / Aid Gastrointestinal (GI): Nausea / Vomiting Hematologic/Lymphatic: Bleeding / Clotting Disorders, Bleeding Tendency Musculoskeletal: Assistive Devices, Muscle Wasting Neurological: Loss of Protective Sensation, Paralysis Psychiatric: Memory Loss Respiratory: Oxygen Use, Shortness of Breath OBJECTIVE Constitutional BP normal; Low grade fever; Alert and in no distress. Well developed. Alert. Clean appearing.. Height/Length: 71 in (180.34 cm), Weight: 220.7 lbs (100.32 kgs), BMI: 30.8, Temperature: 99.3 ?F (37.39 ?C), Pulse: 104 bpm, Respiratory Rate: 18 breaths/min, Blood Pressure: 126/88 mmHg, Pulse Oximetry: 94 %. Respiratory: No respiratory distress. Even respirations and without use of accessory muscles.. Cardiovascular: 2+ left lower extremity edema. Integumentary (Hair, Skin) Mild periwound erythema without warmth. Refer to appropriate clinician wound documentation for this visit; left lower leg ulcer extends to subcut with base partially covered with pink granulation, remainder fibrin and slough; improved in terms of epithelialization. Wound #1 Left Leg is a chronic Full Thickness Venous Ulcer and has received a status of Not Healed. Subsequent wound encounter measurements are 4.8cm length x 2.8cm width x 0.1cm depth, with an area of 13.44 sq cm and a volume of 1.344 cubic cm. Hypergranulation was noted. No tunneling has been noted. No sinus tract has been noted. No undermining has been noted. There is a moderate amount of serous drainage noted which has no odor. The patient reports a wound pain of level 3/10. The wound margin is attached. Wound bed has Yes epithelialization, No eschar, Yes slough, Yes bright red, pink, firm granulation. The periwound skin exhibited: Edema, Moist, Erythema, Hemosiderosis. The periwound skin did not exhibit: Brawny Induration, Excoriation, Induration, Callus, Crepitus, Fluctuance, Friable, Rash, Dry/Scaly, Maceration, Atrophie Ewa Gentry, Cyanosis, Ecchymosis, Pallor, Rubor. The temperature of the periwound skin is WNL. Periwound skin presents with s/s of infection. Confirmation Description and Treatment Plan is: Signs and Symptoms Present. Local Pulse is Palpable. Neurological: Cranial nerves grossly intact with symmetric function normal by informal observation.. ASSESSMENT Active Problems ICD-10 (Encounter Diagnosis) L97.812 - Non-pressure chronic ulcer of other part of right lower leg with fat layer exposed (Encounter Diagnosis) I87.332 - Chronic venous hypertension (idiopathic) with ulcer and inflammation of left lower extremity (Encounter Diagnosis) L03.116 - Cellulitis of left lower limb PROCEDURES Wound #1 Wound #1 (Venous Ulcer) is located on the left leg. A skin/subcutaneous tissue level surgical debridement with a total area debrided of 13.44 sq cm was performed by Cash Brandt MD. Subcutaneous was removed along with devitalized tissue: slough. The following instrument(s) were used: curette. Pain control was achieved using 4% Lido. A time out was conducted prior to the start of the procedure. A minimal amount of bleeding was controlled with pressure. The procedure was tolerated well with a pain level of 0 throughout and a pain level of 0 following the procedure. Post Debridement Measurements: 4.8cm length x 2.8cm width x 0.2cm depth; with an area of 13.44 sq cm and a volume of 2.688 cubic cm; Wound #1 (Venous Ulcer) is located on the left leg. A Disposable Wound Vac Application < 50 Sq Cm procedure was performed for the lower left extremity by Cash Brandt MD. A time out was conducted prior to the start of the procedure. The procedure was tolerated well. General Notes: BEATRICE 6x6 Additional Information Muscle fascia or bone removed and sent to pathology?: No PLAN Wound Orders: Wound #1 Left Leg Anesthetic Topical Xylocaine to wound bed. - In clinic only. Cleanser Cleanse Wound: - Normal Saline in clinic. May use distilled water at home. May Shower. - Please avoid getting tap water in wound. Cover while in shower. DO NOT EXPOSE WOUND TO ANY WATER, INCLUDING LAKES, TAP WATER ETC. Topical Treatments Antibiotic/Antimicrobial Ointment/Cream. - Gentamicin ointment Dressings Primary dressing: - BEATRICE 6x6 Change Dressing: - Next visit. Additional Orders: Follow-Up Appointments Return Appointment: - - One week. Other information: If you develop fever, chills, increased pain, drainage, redness or swelling please call our office. If after hours, respond to the ER. Should you experience any significant changes in your wound(s) or have any questions regarding your home care instructions please contact the wound center @ [phone]. If after hours, contact your primary care physician or go to the hospital emergency room. Scribing Attestation I attest, as the nurse, that I scribed these orders for the physician. General Notes: Please finish taking your doxycycline as prescribed. I've reviewed the clinician's documentation and agree with the evaluation and plan as written. In addition, the patient's ulcer demonstrates evidence of non-viable devitalized tissue which will continue to benefit from sharp debridement to help promote granulation and expedite healing. Negative pressure wound therapy will be utilized to facilitate granulation and removal of exudate and infectious material with the goal of expediting wound healing. Also, the patient will complete his course of doxycycline as prescribed and we' ll defer additional antibiotics. Electronic Signature(s) Signed By: Date: Cash Brandt MD 12/30/2017 13:52:56 Entered By: Cash Brandt on 12/30/2017 13:12:31
== END ==
PROVIDERS: PCP Family Medicine Geriatric Medicine; Visit Provider Internal Medicine
DX: I87.312 Chronic venous hypertension (idiopathic) with ulcer of left lower extremity (principal); L97.822 Non-pressure chronic ulcer of other part of left lower leg with fat layer exposed; L03.116 Cellulitis of left lower limb
CPT/HCPCS: 11042; 97607

== ENCOUNTER → 2018-01-05 09:55 | Outpatient (CLI) | payer MEDICARE, MEDICAID, SELFPAY ==
--- NOTE | 2018-01-05 | OV.WND_ITS ---
Progress Note Details Patient Name: Deangelo José Patient Number: [id number] PatientPatientDate: 01/05/2018 Clinician: Leigh Arredondo Clinician Cosigner: Lita Lott Physician / Family Development Specialist: Cash Brandt SUBJECTIVE Chief Complaint This information was obtained from the patient Venous ulcer on left leg. Allergies Darvocet-N (Severity: Moderate, Reaction: vomiting), Sulfa (Sulfonamide Antibiotics) (Severity: Moderate, Reaction: rash), Ygxiqzi-Rtc-Ivw Reductase Inhibitors ( Severity: Moderate, Reaction: arthralgia), Cephalosporins (Reaction: unknown), penicillin (Reaction: unkown) HPI This information was obtained from the patient 01/05/18. Seen by Dr. Brandt. The patient does not report increased pain or drainage associated with the chronic left lower leg venous ulcer since his last visit and he's completed his course of doxycycline for cellulitis of the leg without reporting adverse side effects. He's also tolerating the [place] wound vac without issue. 12/29/17. Seen by Dr. Brandt. The patient does not report increased pain or drainage associated with the chronic left lower leg venous ulcer since his last visit and he continues on doxycycline for cellulitis of the leg without reporting adverse side effects. 12/21/17. Seen by Dr. Brandt. The patient does not report increased pain or drainage associated with the chronic left lower leg venous ulcer since his last visit and he continues on doxycycline for cellulitis of the leg and feels this has improved. 12/16/17. Seen by Dr. Brandt. The patient has recently completed a course of antibiotics for left 5th toe cellulitis but feels the pain persists. He's also developed recurrent left lower leg erythema in the periulcer area of the chronic venous ulcer again despite being on antibiotics. He's had refractory cellulitis associated with this ulcer on and off for the past few months which has been responsive to doxycycline. 12/09/14. Seen by Dr. Brandt. The patient does not report increased pain or drainage associated with the chronic left lower leg venous ulcer since his last visit and he's tolerating NPWT without difficulty. He's also been given an Rx by his PCP for left 5th toe cellulitis which has been present for a number of weeks and notably has not resolved despite taking antibiotics for the recurrent left lower leg wound infection and cellulitis. 11/24/17. Seen by Dr. Brandt. The patient's completed his course of doxycycline that was treating the left lower leg cellulitis associated with the chronic left lower leg venous ulcer. He does not report pain in the leg nor increased drainage and tolerated NPWT without difficulty. 11/17/17. Seen by Dr. Brandt. The patient does not report increased pain or drainage associated with the chronic left lower leg venous ulcer since his last visit. The staff report increased erythema and drainage on his wound vac dressing however. 11/11/17. Seen by Dr. Brandt. The patient does not report increased pain or drainage associated with the chronic left lower leg venous ulcer since his last visit and he completed his course of antibiotics that was treating cellulitis associated with the ulcer. 11/05/17. Seen by Dr. Brandt. The patient does not report increased pain or drainage associated with the chronic left lower leg venous ulcer since his last visit. His recent wound culture again grew Staph and group G Strep and he's not currently on antibiotics. 10/20/17. Seen by Dr. Brandt. The patient does not report increased pain or drainage associated with the chronic left lower leg venous ulcer since his last visit. He missed last week's appointment because he overslept and of note he states he went swimming before his appointment today in [place]. The dressing was uncovered when he arrived today. 10/06/17. Seen by Dr. Brandt. The patient reports increased pain associated with the chronic left lower leg venous ulcer since his last visit. He states he missed his last appointment because he slept in. 09/22/17. Seen by Bharath Krishnan PA-C. The patient reports a pruritic rash in the periwound area and stable drainage from his venous ulcer of the left leg. 09/08/17. Seen by Dr. Brandt. The patient does not report increased pain associated with the chronic left lower leg venous ulcer since his last visit and he's been applying topical triamcimolone in the periulcer area to treat the chronic rash. Of note, he also reports a new rash over his right wrist. He's reportedly been diagnosed with diabetes in the past while in the hospital but states he's not being treated for this and does not routinely check his blood sugars. 09/01/17. Seen by Dr. Brandt. The patient reports decreased pain and drainage associated with the chronic left lower leg venous ulcer since his last visit and since starting on doxycycline associated cellulitis. His wound culture grew MSSA and group B Strep. 08/25/2017. Seen by Dr. Brandt. Patient reports increased pain and pruritis associated with chronic left lower leg venous ulcer since his last visit. Drainage has increased also and his wound VAC stopped working 3 days ago. He is not currently on antibiotics and does not report fevers or feeling unwell otherwise. 08/18/17. Seen by Dr. Brandt. The patient does not report increased pain associated with the chronic left lower leg venous ulcer since his last visit and he tolerated the compression wrap that's treating chronic venous hypertension without difficulty. 08/11/17. Seen by Dr. Brandt. The patient does not report increased pain associated with the chronic left lower leg venous ulcer since his last visit. 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 08/06/17. Seen by Dr. Brandt. The patient does not report increased pain associated with the chronic left lower leg venous ulcer since his last visit however he continues to have significant green drainage on his dressings. His most recent wound culture grew a resistant coag negative Staph and he's been unable to warehouse order picker his antibiotics that we prescribed following his last visit. He does not report fevers or feeling unwell in general however. 08/04/17. Seen by Dr. Brandt. The patient does not report increased pain or drainage associated to chronic left lower leg venous ulcers since his last visit. His recent culture grew Diptheroids and a Staph species which is resistant to gentamicin. He's also wearing his compression stocking as recommended to treat chronic venous hypertension in the leg and we' re considering placing a Coban wrap today to further address this issue. 07/28/17. Seen by Dr. Brandt. The patient reports some intermittent pain associated with chronic left lower leg venous ulcer. He has completed his course of doxycycline that was treating the MRSA positive wound culture. His arterial Doppler was also unremarkable and the staff also note increased swelling in the left leg today. 07/21/17. Seen by Dr. Brandt. The patient feels that pain reported last week associated with a chronic left lower leg venous ulcer has improved considerably since started on doxycycline. Of note his culture from the last visit grew MRSA sensitive to doxycycline. He is not reporting any problems regarding the wound VAC, fevers, or feeling unwell otherwise. 07/14/17. Seen by Dr. Brandt. The patient continues on levofloxacin for cellulitis associated with chronic left lower leg venous ulcer since his last visit. He does not reporting or side effects fevers or feeling unwell. He is also tolerating negative pressure wound therapy without difficulty. 07/07/17. Seen by Dr. Brandt. The patient does not report increased pain or drainage associated to chronic left lower leg venous ulcers since his last visit. He is now on levofloxacin for the recent MSSA positive culture and cellulitis associated with the ulcer. He does not report other side effects, fevers, nor feeling unwell in general. 06/30/17. Seen by Dr. Brandt. The patient reports some pain associated with the chronic left lower leg venous ulcer that was first noticeable 3 days ago. He does not report fevers or feeling unwell and is currently not on antibiotics. He is wearing his compression stockings recommended and tolerating a pressure with therapy without difficulty. 06/23/17. Seen by Dr. Brandt. The patient reports some intermittent discomfort associated with the chronic left lower leg venous ulcer since last visit. He is tolerating a negative pressure wound therapy and his compression stocking without difficulty also. 06/16/17. Seen by Bharath Krishnan PA-C. The patient reports that his ulcer drainage has decreased since he began taking doxycycline. He still has a few days left in his prescribed course. 06/10/17. Seen by Dr. Brandt. The patient does not report pain or increased drainage associated with the chronic left lower leg venous ulcer since his last visit and he continues on docxycycline for the recent cellulitis associated with the ulcer. 06/03/17. Seen by Dr. Brandt. The patient was started on ciprofloxacin for the recent Klebsiella and staph positive wound culture taken last week from the left lower leg venous ulcer. He reports moderate to significant nausea when taking the ciprofloxacin and stopped after 3 days. He does not report fevers or feeling unwell or pain associated with the ulcer today and his arterial Doppler has not yet been scheduled. 05/26/17. Seen by Bharath Krishnan PA-C. This patient is new to our clinic and presents with an ulcer of the left lower leg that has been present for 2 months. He reports that he has previously been on antibiotics and that the ulcer has grown in size over the past 2 months. The ulcer began as a blister associated with a bout of cellulitis in his left leg. Past Medical History This information was obtained from the patient Patient has a medical history of: Osteoarthritis Degenerative Joint Disease Hyperthyroidism Pulmonary Hypertension Chronic nonspecific lung disease Complaints and Symptoms This information was obtained from the patient Patient complains of: General Notes: I have reviewed and concur with the Review of Systems and Past Family Social History documents completed by the clinician, I have reviewed and concur with the Wound Assessment document completed by the clinician Allergic/Immunologic: Frequent Rashes Cardiovascular (Central/Peripheral): Lower extremity (leg) swelling Integumentary (Hair/Skin/Nails): Open Sore Prior Wound History: Drainage, Pain Patient denies complaints or symptoms related to: Cardiovascular (Central): Irregular heart beat Constitutional Symptoms (General Health): Chills, Fever Ear/Nose/Mouth/Throat: Hearing Loss / Aid Gastrointestinal (GI): Nausea / Vomiting Hematologic/Lymphatic: Bleeding / Clotting Disorders, Bleeding Tendency Musculoskeletal: Assistive Devices, Muscle Wasting Neurological: Loss of Protective Sensation, Paralysis Psychiatric: Memory Loss Respiratory: Oxygen Use, Shortness of Breath OBJECTIVE Constitutional Vital signs reviewed and noted. Well developed. Alert. Clean appearing.. Height/ Length: 71 in (180.34 cm), Weight: 220.7 lbs (100.32 kgs), BMI: 30.8, Temperature: 98.2 ?F ( 36.78 ?C), Pulse: 100 bpm, Respiratory Rate: 18 breaths/min, Blood Pressure: 135/93 mmHg, Pulse Oximetry: 94 %. Ears, Nose, Mouth, and Throat: No clinically significant hearing loss on informal examination. Respiratory: No respiratory distress. Even respirations and without use of accessory muscles.. Cardiovascular: 1+ left lower extremity edema. Integumentary (Hair, Skin) Mild periwound erythema with warmth. Refer to appropriate clinician wound documentation for this visit; left lower leg ulcer extends to subcut with base partially covered with pink granulation, remainder fibrin and slough. Wound #1 Left Leg is a chronic Full Thickness Venous Ulcer and has received a status of Not Healed. Subsequent wound encounter measurements are 3.8cm length x 3cm width x 0.1cm depth, with an area of 11.4 sq cm and a volume of 1.14 cubic cm. Hypergranulation was noted. No tunneling has been noted. No sinus tract has been noted. No undermining has been noted. There is a moderate amount of serous drainage noted which has a strong odor. The patient reports a wound pain of level 3/10. The wound margin is attached. Wound bed has Yes epithelialization, No eschar, Yes slough, Yes bright red, pink, firm granulation. The periwound skin exhibited: Edema, Moist, Erythema, Hemosiderosis. The periwound skin did not exhibit: Brawny Induration, Excoriation, Induration, Callus, Crepitus, Fluctuance, Friable, Rash, Dry/Scaly, Maceration, Atrophie Jennifer, Cyanosis, Ecchymosis, Pallor, Rubor. The temperature of the periwound skin is WNL. Periwound skin presents with s/s of infection. Confirmation Description and Treatment Plan is: Signs and Symptoms Present. Local Pulse is Palpable. Neurological: Cranial nerves grossly intact with symmetric function normal by informal observation.. ASSESSMENT Active Problems ICD-10 (Encounter Diagnosis) L97.812 - Non-pressure chronic ulcer of other part of right lower leg with fat layer exposed (Encounter Diagnosis) I87.332 - Chronic venous hypertension (idiopathic) with ulcer and inflammation of left lower extremity (Encounter Diagnosis) L08.9 - Local infection of the skin and subcutaneous tissue, unspecified PLAN Wound Orders: Wound #1 Left Leg Anesthetic Topical Xylocaine to wound bed. - In clinic only. Cleanser Cleanse Wound: - Normal Saline in clinic. May use distilled water at home. May Shower. - Please avoid getting tap water in wound. Cover while in shower. DO NOT EXPOSE WOUND TO ANY WATER, INCLUDING LAKES, TAP WATER ETC. Topical Treatments Antibiotic/Antimicrobial Ointment/Cream. - Gentamicin ointment Dressings Primary dressing: - Bordered foam Change Dressing: - Daily Additional Orders: Follow-Up Appointments Return Appointment: - - One week. Other information: If you develop fever, chills, increased pain, drainage, redness or swelling please call our office. If after hours, respond to the ER. Should you experience any significant changes in your wound(s) or have any questions regarding your home care instructions please contact the wound center @ [phone]. If after hours, contact your primary care physician or go to the hospital emergency room. Scribing Attestation I attest, as the nurse, that I scribed these orders for the physician. General Notes: We will call with any positive wound cultures requiring oral antibiotics. I've reviewed the clinician's documentation and agree with the evaluation and plan as written. In addition, the patient's ulcer demonstrates evidence of non-viable devitalized tissue which will continue to benefit from sharp debridement to help promote granulation and expedite healing. Also, I've held NPWT, cultured the ulcer, and started treating with topical gentamicin. We'll consider placing a compression wrap next week to address the increased leg edema and chronic venous hypertension. Electronic Signature(s) Signed By: Date: Cash Brandt MD 01/06/2018 07:59:58 Entered By: Cash Brandt on 01/06/2018 07:55:42
== END ==
PROVIDERS: PCP Family Medicine Geriatric Medicine; Visit Provider Internal Medicine
DX: I87.312 Chronic venous hypertension (idiopathic) with ulcer of left lower extremity (principal); L97.822 Non-pressure chronic ulcer of other part of left lower leg with fat layer exposed; R60.0 Localized edema
CPT/HCPCS: 11042; 87070; 87077; 87147; 87205

== ENCOUNTER → 2018-01-14 10:10 | Outpatient (CLI) | payer MEDICARE, MEDICAID, SELFPAY | PROVIDERS: PCP Family Medicine Geriatric Medicine; Visit Provider Family Medicine | DX: I87.2 Venous insufficiency (chronic) (peripheral) (principal); L97.821 Non-pressure chronic ulcer of other part of left lower leg limited to breakdown of skin; L03.116 Cellulitis of left lower limb | CPT/HCPCS: 11042; 99214 ==

== ENCOUNTER → 2018-01-28 08:28 | Outpatient (CLI) | payer MEDICARE, MEDICAID, SELFPAY ==
--- NOTE | 2018-01-28 | DI.US.S_ITS ---
PROCEDURE: US VENOUS INSUFFICIENCY LTD INDICATIONS: Non-pressure chronic ulcer of other part of right TECHNIQUE: Real time scanning was performed of the lower extremity venous system, with imaging documentation, as well as Color and pulse Doppler interrogation. COMPARISON: None. FINDINGS: LEFT LOWER EXTREMITY: The deep veins are normally compressible, and free of intraluminal thrombus. Color and pulse Doppler demonstrate normal intravascular flow. There is normal augmentation with distal compression maneuver. Mild reflux. Greater saphenous vein (GSV): Normally 4 mm or less in diameter, with any reflux less than 0.5 seconds. Anterior and posterior accessory GSV (AAGSV): Reflux present with duration of reflux extending beyond 0.5 seconds. Small saphenous vein (SSV): Not evaluated. Senior Strategy Manager veins: Senior Strategy Manager marked within the left calf. IMPRESSION: 1. Reflux within the deep system. 2. Reflux within the anterior and posterior accessory saphenous vein. 3. Left calf tax commissioner marked. Dictated by: Parag BROWNE Interpreted: Kale Peck MD on 01/28/2018 at 11:42 Approved by: Kale Peck M.D. on 01/28/2018 at 12:26
== END ==
PROVIDERS: PCP Family Medicine Geriatric Medicine; Visit Provider Family Medicine
DX: L97.812 Non-pressure chronic ulcer of other part of right lower leg with fat layer exposed (principal); L08.89 Other specified local infections of the skin and subcutaneous tissue; I87.332 Chronic venous hypertension (idiopathic) with ulcer and inflammation of left lower extremity
CPT/HCPCS: 11042; 36415; 80053; 84134; 85025; 85651; 86140; 87070; 87075; 87077; 87147; 87205; 93971; 99213

== ENCOUNTER → 2018-01-28 10:42 | Outpatient (CLI) | payer MEDICARE, MEDICAID, SELFPAY ==
[2018-01-28 11:35] LABS: Add Manual Diff / Slide Review NO; Basophils Percent Auto 0.6 % (0-2); Eosinophils Percent Auto 3.7 % (2-4); Hematocrit 40.3 % (41-53); Hemoglobin 12.9 g/dL (13.5-17.5); Mean Corpuscular HGB Conc 32.1 % (30-36); Mean Corpuscular Hemoglobin 27.8 PG (26-34); Mean Corpuscular Volume 86.5 fL (80-100); Monocytes Percent Auto 11.4 % (3-14); Neutrophils Absolute Auto 5700 /uL (3000-5900); Neutrophils Percent Auto 62.3 % (50-75); Platelet Count 299 X10^3/uL (150-400); Red Blood Cell Count 4.66 X10^6/uL (4.5-5.9); Red Cell Distribution Width 15.3 % (11.6-14.8); White Blood Cell Count 9.2 X10^3/uL (4.5-11.0)
[2018-01-28 11:49] LABS: Alanine Aminotransferase 22 IU/L (21-72); Albumin Globulin Ratio 1.3 (1.0-2.8); Alkaline Phosphatase 84 U/L (38-126); Aspartate Aminotransferase 21 IU/L (17-59); BUN Creatinine Ratio 31.1 (6-22); Bilirubin Total 0.3 mg/dL (0.2-1.3); Blood Urea Nitrogen 28 mg/dL (9-20); Calcium 9.2 mg/dL (8.4-10.2); Carbon Dioxide 34 mmol/L (22-32); Chloride 98 mmol/L (98-107); Estimated Glomerular Filt Rate > 60.0 mL/min (>60); Glucose 108 mg/dL (80-110); HEMOLYSIS < 15 (0-50); Potassium 4.1 mmol/L (3.4-5.1); Sodium 140 mmol/L (137-145)
[2018-01-28 11:58] LABS: Erythrocyte Sedimentation Rate 18 MM/HR (0-15)
[2018-01-28 12:00] LABS: Prealbumin 22.1 mg/dL (17.6-36.0)
== END ==
PROVIDERS: PCP Family Medicine Geriatric Medicine; Visit Provider Family Medicine
DX: I87.332 Chronic venous hypertension (idiopathic) with ulcer and inflammation of left lower extremity (principal)
CPT/HCPCS: 36415; 80053; 84134; 85025; 85651; 86140

== ENCOUNTER → 2018-02-03 09:22 | Outpatient (CLI) | payer MEDICARE, MEDICAID, SELFPAY | PROVIDERS: PCP Family Medicine Geriatric Medicine; Visit Provider Family Medicine | DX: I87.2 Venous insufficiency (chronic) (peripheral) (principal); L97.821 Non-pressure chronic ulcer of other part of left lower leg limited to breakdown of skin; L03.116 Cellulitis of left lower limb | CPT/HCPCS: 11042 ==

== ENCOUNTER → 2018-02-10 08:31 | Outpatient (CLI) | payer MEDICARE, MEDICAID, SELFPAY | PROVIDERS: PCP Family Medicine Geriatric Medicine; Visit Provider Family Medicine | DX: I87.332 Chronic venous hypertension (idiopathic) with ulcer and inflammation of left lower extremity (principal); L97.822 Non-pressure chronic ulcer of other part of left lower leg with fat layer exposed; L03.116 Cellulitis of left lower limb | CPT/HCPCS: 11042; 87070; 87075; 87077; 87147; 87186; 87205; 99213 ==

== ENCOUNTER → 2018-02-17 09:53 | Outpatient (CLI) | payer MEDICARE, MEDICAID, SELFPAY ==
[2018-02-17 11:07] LABS: Add Manual Diff / Slide Review NO; Basophils Percent Auto 0.1 % (0-2); Hematocrit 40.7 % (41-53); Hemoglobin 13.4 g/dL (13.5-17.5); Lymphocytes Percent Auto 1.6 % (25-40); Mean Corpuscular HGB Conc 32.9 % (30-36); Mean Corpuscular Hemoglobin 27.9 PG (26-34); Mean Corpuscular Volume 84.6 fL (80-100); Monocytes Percent Auto 2.5 % (3-14); Neutrophils Absolute Auto 17100 /uL (3000-5900); Neutrophils Percent Auto 94.8 % (50-75); Platelet Count 302 X10^3/uL (150-400); Red Blood Cell Count 4.81 X10^6/uL (4.5-5.9); Red Cell Distribution Width 15.4 % (11.6-14.8); White Blood Cell Count 18.1 X10^3/uL (4.5-11.0)
[2018-02-17 12:43] LABS: Influenza A and B by PCR Rapid Negative (Negative)
[2018-02-17 13:13] LABS: Procalcitonin 1.02 ng/mL (<0.5)
== END ==
PROVIDERS: Physician Assistant; PCP Family Medicine Geriatric Medicine; Visit Provider Family Medicine
DX: R50.9 Fever, unspecified (principal)
CPT/HCPCS: 36415; 84145; 85025; 87400

== ENCOUNTER → 2018-02-17 10:05 | Outpatient (CLI) | payer MEDICARE, MEDICAID, SELFPAY | PROVIDERS: PCP Family Medicine Geriatric Medicine; Visit Provider Family Medicine | DX: I87.312 Chronic venous hypertension (idiopathic) with ulcer of left lower extremity (principal); L97.821 Non-pressure chronic ulcer of other part of left lower leg limited to breakdown of skin | CPT/HCPCS: 11042; 99214 ==

== ENCOUNTER → 2018-02-24 08:40 | Outpatient (CLI) | payer MEDICARE, MEDICAID, SELFPAY | PROVIDERS: PCP Family Medicine Geriatric Medicine; Visit Provider Family Medicine | DX: I87.312 Chronic venous hypertension (idiopathic) with ulcer of left lower extremity (principal); L97.822 Non-pressure chronic ulcer of other part of left lower leg with fat layer exposed; L03.116 Cellulitis of left lower limb | CPT/HCPCS: 11042; 99213 ==

== ENCOUNTER → 2018-03-03 09:31 | Outpatient (CLI) | payer MEDICARE, MEDICAID, SELFPAY | PROVIDERS: PCP Family Medicine Geriatric Medicine; Visit Provider Family Medicine | DX: I87.332 Chronic venous hypertension (idiopathic) with ulcer and inflammation of left lower extremity (principal); L97.822 Non-pressure chronic ulcer of other part of left lower leg with fat layer exposed; L03.116 Cellulitis of left lower limb; I73.00 Raynaud's syndrome without gangrene | CPT/HCPCS: 11042; 29581; 99212 ==

== ENCOUNTER → 2018-03-03 13:33 | Outpatient (CLI) | payer MEDICARE, MEDICAID, SELFPAY ==
[2018-03-03 14:11] LABS: Rheumatoid Factor < 8.6 IU/mL (<12.0)
[2018-03-06 20:06] LABS: ANA Screen NEGATIVE (Negative); DNA Antibody Crithidia IFA NEGATIVE (Negative); Rheumatoid Factor <14 IU/mL; Sjogren Antiboday SS-A <1.0 NEG AI (<1.0 NEGATIVE); Sjogren Antiboday SS-B <1.0 NEG AI (<1.0 NEGATIVE); Sm Antibody <1.0 NEG AI (<1.0 NEGATIVE); Sm/RNP Antibody <1.0 NEG AI (<1.0 NEGATIVE)
== END ==
PROVIDERS: PCP Family Medicine Geriatric Medicine; Visit Provider Family Medicine Geriatric Medicine
DX: I73.00 Raynaud's syndrome without gangrene (principal)
CPT/HCPCS: 36415; 86038; 86430

== ENCOUNTER → 2018-03-10 09:33 | Outpatient (CLI) | payer MEDICARE, MEDICAID, SELFPAY | PROVIDERS: PCP Family Medicine Geriatric Medicine; Visit Provider Family Medicine | DX: I87.2 Venous insufficiency (chronic) (peripheral) (principal); L97.822 Non-pressure chronic ulcer of other part of left lower leg with fat layer exposed | CPT/HCPCS: 99213 ==

== ENCOUNTER → 2018-03-17 10:46 | Outpatient (CLI) | payer MEDICARE, MEDICAID, SELFPAY | PROVIDERS: PCP Family Medicine Geriatric Medicine; Visit Provider Family Medicine | DX: I87.2 Venous insufficiency (chronic) (peripheral) (principal); L97.822 Non-pressure chronic ulcer of other part of left lower leg with fat layer exposed; S81.802A Unspecified open wound, left lower leg, initial encounter | CPT/HCPCS: 97597; 97598; 99213 ==

== ENCOUNTER → 2018-03-24 13:05 | Outpatient (CLI) | payer MEDICARE, MEDICAID, SELFPAY | PROVIDERS: PCP Family Medicine Geriatric Medicine; Visit Provider Family Medicine | DX: I87.2 Venous insufficiency (chronic) (peripheral) (principal); L97.822 Non-pressure chronic ulcer of other part of left lower leg with fat layer exposed; L89.892 Pressure ulcer of other site, stage 2 | CPT/HCPCS: 11042 ==

== ENCOUNTER → 2018-04-01 08:39 | Outpatient (CLI) | payer MEDICARE, MEDICAID, SELFPAY | PROVIDERS: PCP Family Medicine Geriatric Medicine; Visit Provider Family Medicine | DX: I87.312 Chronic venous hypertension (idiopathic) with ulcer of left lower extremity (principal); L97.822 Non-pressure chronic ulcer of other part of left lower leg with fat layer exposed | CPT/HCPCS: 11042 ==

== ENCOUNTER → 2018-04-13 09:06 | Outpatient (CLI) | payer MEDICARE, MEDICAID, SELFPAY | PROVIDERS: PCP Family Medicine Geriatric Medicine; Visit Provider Family Medicine | DX: L97.822 Non-pressure chronic ulcer of other part of left lower leg with fat layer exposed (principal); I87.312 Chronic venous hypertension (idiopathic) with ulcer of left lower extremity | CPT/HCPCS: 11042 ==

== ENCOUNTER → 2018-04-20 08:39 | Outpatient (CLI) | payer MEDICARE, MEDICAID, SELFPAY | PROVIDERS: PCP Family Medicine Geriatric Medicine; Visit Provider Family Medicine | DX: I87.312 Chronic venous hypertension (idiopathic) with ulcer of left lower extremity (principal); L97.821 Non-pressure chronic ulcer of other part of left lower leg limited to breakdown of skin; L02.612 Cutaneous abscess of left foot | CPT/HCPCS: 99213 ==

== ENCOUNTER → 2018-04-27 08:49 | Outpatient (CLI) | payer MEDICARE, MEDICAID, SELFPAY | PROVIDERS: PCP Family Medicine Geriatric Medicine; Visit Provider Family Medicine | DX: I87.312 Chronic venous hypertension (idiopathic) with ulcer of left lower extremity (principal); L97.821 Non-pressure chronic ulcer of other part of left lower leg limited to breakdown of skin; M79.605 Pain in left leg | CPT/HCPCS: 73660; 87070; 87075; 87077; 87147; 87186; 87205; 97597; 99212 ==

== ENCOUNTER → 2018-04-27 09:27 | Outpatient (CLI) | payer MEDICARE, MEDICAID, SELFPAY ==
--- NOTE | 2018-04-27 | DI.RAD.S_ITS ---
PROCEDURE: XR TOE LT MIN 2V INDICATIONS: EVAL FOR OSTEO TECHNIQUE: 3 views of the left fifth toe(s) acquired. COMPARISON: None. FINDINGS: Bones: No fractures or dislocations. No bony erosions. There is arthrodesis of the second third proximal interphalangeal joints. There is a corticated ossicle at the base of the first toe. Soft tissues: No suspicious soft tissue densities. IMPRESSION: No definitive radiographic findings to suggest osteomyelitis involving the fifth toe. Early osteomyelitis may not have radiographic findings. If clinical symptoms persist or clinical suspicion for pathology is high, a triple phase bone scan or MRI is suggested for further evaluation. Dictated by: Leola Villaseñor M.D. on 04/27/2018 at 17:15 Approved by: Leola Villaseñor M.D. on 04/27/2018 at 17:18
== END ==
PROVIDERS: PCP Family Medicine Geriatric Medicine; Visit Provider Family Medicine
DX: M79.675 Pain in left toe(s) (principal)
CPT/HCPCS: 73660

== ENCOUNTER → 2018-05-04 08:34 | Outpatient (CLI) | payer MEDICARE, MEDICAID, SELFPAY | PROVIDERS: PCP Family Medicine Geriatric Medicine; Visit Provider Family Medicine | DX: I87.312 Chronic venous hypertension (idiopathic) with ulcer of left lower extremity (principal); L97.822 Non-pressure chronic ulcer of other part of left lower leg with fat layer exposed; M79.675 Pain in left toe(s) | CPT/HCPCS: 11042; 87070; 87075; 87077; 87147; 87186; 87205 ==

== ENCOUNTER → 2018-05-10 09:52 | Outpatient (CLI) | payer MEDICARE, MEDICAID, SELFPAY | PROVIDERS: PCP Family Medicine Geriatric Medicine; Visit Provider Family Medicine | DX: I87.312 Chronic venous hypertension (idiopathic) with ulcer of left lower extremity (principal); L97.822 Non-pressure chronic ulcer of other part of left lower leg with fat layer exposed; L03.116 Cellulitis of left lower limb | CPT/HCPCS: 11042; 99213 ==

== ENCOUNTER → 2018-05-17 11:11 | Outpatient (CLI) | payer MEDICARE, MEDICAID, SELFPAY | PROVIDERS: PCP Family Medicine Geriatric Medicine; Visit Provider Family Medicine | DX: I87.312 Chronic venous hypertension (idiopathic) with ulcer of left lower extremity (principal); L97.822 Non-pressure chronic ulcer of other part of left lower leg with fat layer exposed; L03.116 Cellulitis of left lower limb | CPT/HCPCS: 11042 ==

== ENCOUNTER → 2018-05-24 09:58 | Outpatient (CLI) | payer MEDICARE, MEDICAID, SELFPAY | PROVIDERS: PCP Family Medicine Geriatric Medicine; Visit Provider Family Medicine | DX: I87.332 Chronic venous hypertension (idiopathic) with ulcer and inflammation of left lower extremity (principal); L97.822 Non-pressure chronic ulcer of other part of left lower leg with fat layer exposed; L03.116 Cellulitis of left lower limb; I70.242 Atherosclerosis of native arteries of left leg with ulceration of calf | CPT/HCPCS: 11042; 87070; 87075; 87077; 87147; 87186; 87205; 93923 ==

== ENCOUNTER → 2018-05-31 08:33 | Outpatient (CLI) | payer MEDICARE, MEDICAID, SELFPAY | PROVIDERS: PCP Family Medicine Geriatric Medicine; Visit Provider Family Medicine | DX: I87.312 Chronic venous hypertension (idiopathic) with ulcer of left lower extremity (principal); L97.822 Non-pressure chronic ulcer of other part of left lower leg with fat layer exposed; L03.116 Cellulitis of left lower limb; B95.4 Other streptococcus as the cause of diseases classified elsewhere; M79.605 Pain in left leg | CPT/HCPCS: 11042; 99213 ==

== ENCOUNTER → 2018-05-31 09:32 | Outpatient (CLI) | payer MEDICARE, MEDICAID, SELFPAY ==
--- NOTE | 2018-05-31 | DI.US.S_ITS ---
PROCEDURE: US ARTERIAL DUPLEX LE LT INDICATIONS: ARTERIAL DISEASE TECHNIQUE: Color and pulse Doppler interrogation was performed of the left lower extremity arterial system, with image documentation. COMPARISON: [facility], [place], ARTERIAL LOW.EXTREM.BILATERAL, 07/21/2017, 9:36. FINDINGS: Common femoral artery: 98 cm/sec, with triphasic flow. Deep femoral artery: 113 cm/sec, with biphasic flow. Proximal superficial femoral artery: 117 cm/sec, with triphasic flow. Mid superficial femoral artery: 124 cm/sec, with triphasic flow. Distal superficial femoral artery: 94 cm/sec, with triphasic flow. Popliteal artery: 68 cm/sec, with triphasic flow. Posterior tibial artery: 92 cm/sec, with monophasic flow. Anterior tibial artery/dorsalis pedis: 76 cm/sec, with monophasic flow. Keane-scale imaging description: There is transition from triphasic waveforms in the popliteal artery to monophasic waveforms in the infrageniculate arteries. IMPRESSION: Change in phasicity from the popliteal artery to the below the knee arteries raises the suspicion for a focal arterial stenosis. If further characterization is warranted, CTA with bilateral lower extremity runoff is recommended. These findings were discussed with Dr. Lind at 1139 and on 05/31/18. Dictated by: Melissa Cherry M.D. on 05/31/2018 at 11:23 Approved by: Melissa Cherry M.D. on 05/31/2018 at 11:40
== END ==
PROVIDERS: PCP Family Medicine Geriatric Medicine; Visit Provider Family Medicine
DX: I77.9 Disorder of arteries and arterioles, unspecified (principal); I87.312 Chronic venous hypertension (idiopathic) with ulcer of left lower extremity; L97.822 Non-pressure chronic ulcer of other part of left lower leg with fat layer exposed; L03.116 Cellulitis of left lower limb; B95.4 Other streptococcus as the cause of diseases classified elsewhere; M79.605 Pain in left leg
CPT/HCPCS: 11042; 93926

== ENCOUNTER → 2018-06-07 08:41 | Outpatient (CLI) | payer MEDICARE, MEDICAID, SELFPAY | PROVIDERS: PCP Family Medicine Geriatric Medicine; Visit Provider Family Medicine | DX: I87.312 Chronic venous hypertension (idiopathic) with ulcer of left lower extremity (principal); L97.822 Non-pressure chronic ulcer of other part of left lower leg with fat layer exposed; L03.116 Cellulitis of left lower limb; I70.242 Atherosclerosis of native arteries of left leg with ulceration of calf | CPT/HCPCS: 11042; 99213 ==

== ENCOUNTER → 2018-06-07 09:39 | Outpatient (CLI) | payer MEDICARE, MEDICAID, SELFPAY ==
--- NOTE | 2018-06-07 | DI.CT.S_ITS ---
PROCEDURE: CT ANGIO ABD AORTA RUNOFF INDICATIONS: Atherosclerosis of [place] arteries of left leg TECHNIQUE: After the administration of intravenous contrast, 2.5 mm sections acquired from T12 to the feet, with optional delayed image acquisition from the knees to the feet. 3-dimensional maximum intensity projection (MIP) coronal and sagittal reformats, and/or 3-dimensional volume rendering reformatting was then performed. For radiation dose reduction, the following was used: automated exposure control. COMPARISON: [facility], [place], US ARTERIAL DUPLEX LE LT, 05/31/2018, 9:47. [facility], [place], ARTERIAL LOW.EXTREM.BILATERAL, 07/21/2017, 9:36. FINDINGS: Image quality: Excellent. Extravascular tissues: Lung bases are clear. Heart size is normal. Liver is normal in size and enhancement. Gallbladder is within normal limits as visualized. Biliary system is non dilated. Pancreas enhances normally. Spleen is normal in size and enhancement. No adrenal nodules. Kidneys are normal in size and enhancement, without hydronephrosis. Non opacified bowel loops demonstrate normal wall thickness and enhancement. No free fluid or air. 15 mm short axis adenopathy within the left para-aortic location inferiorly. There is a small fat containing umbilical hernia measuring 15 mm. Bladder wall thickness is normal. No inguinal hernias. 11 mm short axis right inguinal adenopathy is present. No suspicious bony lesions. Severe periarticular osteophyte formation at the bilateral knee joints. No vertebral body compression fractures. Abdominal aorta: The abdominal aorta demonstrates moderate diffuse plaque and mild diffuse stenosis. No aneurysm nor dissection. 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 The internal adnexa iliac arteries demonstrate mild diffuse stenosis. The common, profunda, and superficial femoral arteries demonstrate multifocal mild stenoses. Above and below-knee popliteal artery demonstrates mild diffuse stenosis. Anterior tibial artery, tibioperoneal trunk, and posterior tibial arteries are patent. Peroneal artery occludes proximally. Left lower extremity: There is an ovoid 30 mm diameter region of fat density within the left lower thigh, superficial to the medial head of the gastrocnemius. There is a central region of calcification, as well as mild fat stranding within the mass. The common, internal, and extra iliac arteries are patent. Common, profunda, and superficial femoral arteries are patent. Above and below-knee popliteal artery is patent. Anterior tibial artery is patent to its normal terminus. Tibioperoneal trunk demonstrates mild stenosis. Posterior tibial artery demonstrates mild multifocal stenoses. The peroneal artery is patent. IMPRESSION: 1. No significant inflow, nor outflow stenosis. Specifically, no evidence of left-sided outflow stenosis as suggested by ultrasound. 2. At least 2 vessel bilateral lower extremity runoff. 3. 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 Dictated by: Federico Azevedo M.D. on 06/07/2018 at 13:34 Approved by: Federico Azevedo M.D. on 06/07/2018 at 13:56
[2018-06-07 10:26] LABS: BUN Creatinine Ratio 33.3 (6-22); Blood Urea Nitrogen 30 mg/dL (9-20); Estimated Glomerular Filt Rate > 60.0 mL/min (>60)
== END ==
PROVIDERS: PCP Family Medicine Geriatric Medicine; Visit Provider Family Medicine
DX: I70.242 Atherosclerosis of native arteries of left leg with ulceration of calf (principal); R22.42 Localized swelling, mass and lump, left lower limb; I70.0 Atherosclerosis of aorta; I87.312 Chronic venous hypertension (idiopathic) with ulcer of left lower extremity; L97.822 Non-pressure chronic ulcer of other part of left lower leg with fat layer exposed; L03.116 Cellulitis of left lower limb
CPT/HCPCS: 11042; 36415; 75635; 82565; 84520; Q9967

== ENCOUNTER → 2018-06-14 09:12 | Outpatient (CLI) | payer MEDICARE, MEDICAID, SELFPAY | PROVIDERS: PCP Family Medicine Geriatric Medicine; Visit Provider Family Medicine | DX: I87.322 Chronic venous hypertension (idiopathic) with inflammation of left lower extremity (principal); L97.822 Non-pressure chronic ulcer of other part of left lower leg with fat layer exposed; L03.116 Cellulitis of left lower limb; I70.242 Atherosclerosis of native arteries of left leg with ulceration of calf; B95.4 Other streptococcus as the cause of diseases classified elsewhere; R22.42 Localized swelling, mass and lump, left lower limb | CPT/HCPCS: 29581; 99213; 99214 ==

== ENCOUNTER → 2018-06-23 13:33 | Outpatient (CLI) | payer MEDICARE, MEDICAID, SELFPAY | PROVIDERS: PCP Family Medicine Geriatric Medicine; Visit Provider Family Medicine | DX: I87.312 Chronic venous hypertension (idiopathic) with ulcer of left lower extremity (principal); L97.822 Non-pressure chronic ulcer of other part of left lower leg with fat layer exposed; R93.6 Abnormal findings on diagnostic imaging of limbs; Z68.32 Body mass index [BMI] 32.0-32.9, adult | CPT/HCPCS: 15271; 99212; G0463; Q4196 ==

== ENCOUNTER → 2018-06-29 10:01 | Outpatient (CLI) | payer MEDICARE, MEDICAID, SELFPAY | PROVIDERS: PCP Family Medicine Geriatric Medicine; Visit Provider Family Medicine | DX: I87.2 Venous insufficiency (chronic) (peripheral) (principal); L97.822 Non-pressure chronic ulcer of other part of left lower leg with fat layer exposed | CPT/HCPCS: 99213 ==

== ENCOUNTER → 2018-07-06 09:32 | Outpatient (CLI) | payer MEDICARE, MEDICAID, SELFPAY | PROVIDERS: PCP Family Medicine Geriatric Medicine; Visit Provider Family Medicine | DX: I87.312 Chronic venous hypertension (idiopathic) with ulcer of left lower extremity (principal); L97.822 Non-pressure chronic ulcer of other part of left lower leg with fat layer exposed; M79.605 Pain in left leg | CPT/HCPCS: 15271; Q4196 ==

== ENCOUNTER → 2018-07-06 12:44 | Outpatient (CLI) | payer MEDICARE, MEDICAID, SELFPAY ==
--- NOTE | 2018-07-06 12:52 | DI.MRI.S_ITS ---
PROCEDURE: MR KNEE LT WO/W CON INDICATIONS: Mass left popliteal fossa rule out sarcoma(see CT Angio) TECHNIQUE: Noncontrast sagittal PD fast spin echo and T2 fast spin echo with fat saturation, sagittal 3-D FLASH with fat saturation; coronal T1 spin echo and PD fast spin echo with fat saturation, and axial T1 spin echo and PD fast spin echo with fat saturation through the knee. Post-contrast axial, coronal, and sagittal T1 spin echo with fat saturation through the knee. COMPARISON: [facility], MR, JULIANA LT KNEE, 06/21/2012, 11:13. [facility], CR, BONE LENGTH (SCANOGRAM), 06/21/2012, 10:10. JUAN PABLO Alvarado, BILATERAL KNEE 3VW, 11/19/2011, 11:45. FINDINGS: Image quality: Excellent. Menisci: There are severe degenerative tear of the medial and lateral menisci. The meniscal root ligaments appear intact. Cruciate ligaments: Both the anterior and posterior cruciate ligaments are at least partially torn. Medial structures: The medial collateral ligament appears intact. The posterior oblique ligament, semimembranosus tendon insertions, and oblique popliteal liagment, and meniscocapsular junction appear intact. Visualized portions of the pes anserinus tendons appear normal. No abnormal bursal fluid. Lateral structures: The lateral collateral ligament, long and short heads of the biceps femoris tendon appear intact. The popliteus tendon appears normal; the popliteofibular ligament appears intact. The posterosuperior and anteroinferior popliteomeniscal fascicles appear intact. The arcuate and fabellofibular ligaments appear intact, around the lateral inferior geniculate artery. Iliotibial band appears normal. Anterior structures: The quadriceps and patellar tendons appear intact. Patellar alignment is normal. No femoral trochlear dysplasia or ventral trochlear prominence. No edema in the infrapatellar fat pad. Bones and cartilage: No suspicious osseous enhancement. No bone marrow contusions or fractures. There is severe joint space narrowing and loss of articular cartilage of the medial and lateral femorotibial compartments, as well as the patellofemoral compartment. Joint space: There is moderate knee joint fluid. Normal appearing synovial plicae are incidentally noted. There is a small to moderate-sized Joaquin's cyst. Multiple intra-articular bodies are seen. There is a 2.9 x 1.7 x 3.3 cm oval-shaped mass within the Joaquin's cyst, compatible with an intra-articular body. Multiple intra-articular bodies are also noted in the posterior anterior posterior knee joint. No suspicious soft tissue enhancement. IMPRESSION: 1. At least partial ACL tear. 2. At least partial PCL tear. 3. Severe degenerative tear of both medial and lateral menisci. 4. Severe tricompartmental knee joint degeneration. 4. Multiple intra-articular bodies. One of the large intraartifular body is in a Joaquin's cyst, asuring 2.9 x 1.7 x 3.3 cm. This is likely the palpable mass. No evidence for sarcoma. 5. Moderate knee joint effusion. Dictated by: Leola Villaseñor M.D. on 07/06/2018 at 13:42 Approved by: Leola Villaseñor M.D. on 07/06/2018 at 18:13
== END ==
PROVIDERS: PCP Family Medicine Geriatric Medicine; Visit Provider Specialist
DX: S83.512A Sprain of anterior cruciate ligament of left knee, initial encounter (principal); S83.522A Sprain of posterior cruciate ligament of left knee, initial encounter; M23.201 Derangement of unspecified lateral meniscus due to old tear or injury, left knee; M23.204 Derangement of unspecified medial meniscus due to old tear or injury, left knee; M17.12 Unilateral primary osteoarthritis, left knee; M71.22 Synovial cyst of popliteal space [Baker], left knee; M25.462 Effusion, left knee; R93.6 Abnormal findings on diagnostic imaging of limbs; I87.312 Chronic venous hypertension (idiopathic) with ulcer of left lower extremity; L97.822 Non-pressure chronic ulcer of other part of left lower leg with fat layer exposed; M79.605 Pain in left leg
CPT/HCPCS: 15271; 73723; A9579; Q4196

== ENCOUNTER → 2018-07-13 08:37 | Outpatient (CLI) | payer MEDICARE, MEDICAID, SELFPAY | PROVIDERS: PCP Family Medicine Geriatric Medicine; Visit Provider Family Medicine | DX: I87.332 Chronic venous hypertension (idiopathic) with ulcer and inflammation of left lower extremity (principal); L97.822 Non-pressure chronic ulcer of other part of left lower leg with fat layer exposed; I70.242 Atherosclerosis of native arteries of left leg with ulceration of calf | CPT/HCPCS: 15271; Q4196 ==

== ENCOUNTER → 2018-07-20 09:05 | Outpatient (CLI) | payer MEDICARE, MEDICAID, SELFPAY | PROVIDERS: PCP Family Medicine Geriatric Medicine; Visit Provider Family Medicine | DX: I87.312 Chronic venous hypertension (idiopathic) with ulcer of left lower extremity (principal); L97.822 Non-pressure chronic ulcer of other part of left lower leg with fat layer exposed; I70.242 Atherosclerosis of native arteries of left leg with ulceration of calf | CPT/HCPCS: 17250 ==

== ENCOUNTER → 2018-07-27 08:35 | Outpatient (CLI) | payer MEDICARE, MEDICAID, SELFPAY | PROVIDERS: PCP Family Medicine Geriatric Medicine; Visit Provider Family Medicine | DX: I87.312 Chronic venous hypertension (idiopathic) with ulcer of left lower extremity (principal); L97.822 Non-pressure chronic ulcer of other part of left lower leg with fat layer exposed; I70.242 Atherosclerosis of native arteries of left leg with ulceration of calf | CPT/HCPCS: 15271; Q4101 ==

== ENCOUNTER → 2018-08-03 08:51 | Outpatient (CLI) | payer MEDICARE, MEDICAID, SELFPAY | PROVIDERS: PCP Family Medicine Geriatric Medicine; Visit Provider Family Medicine | DX: I87.2 Venous insufficiency (chronic) (peripheral) (principal); L97.822 Non-pressure chronic ulcer of other part of left lower leg with fat layer exposed | CPT/HCPCS: 11042 ==

== ENCOUNTER → 2018-08-03 09:28 | Outpatient (CLI) | payer MEDICARE, MEDICAID, SELFPAY ==
[2018-08-03 09:45] LABS: Bacteria Urine None Seen; RBC Urine None Seen (0-5/HPF); WBC Urine None Seen (0-5/HPF)
[2018-08-03 10:45] LABS: Appearance Urine UA CLEAR; Bilirubin Urine UA NEGATIVE (NEGATIVE); Color Urine UA YELLOW; Glucose Urine UA NEGATIVE (Negative); Ketones Urine UA NEGATIVE (NEGATIVE); Leukocyte Esterase Urine UA NEGATIVE (NEGATIVE); Nitrite Urine UA NEGATIVE (Negative); Occult Blood Urine UA NEGATIVE (Negative); Protein Urine UA NEGATIVE (Negative); Urobilinogen Urine UA 0.2 E.U./dL (0.2)
[2018-08-03 11:03] LABS: Culture Indicated Urine Cult Not Indicated; Urine Comments Microscopic Normal
[2018-08-03 11:20] LABS: Prothrombin Time 11.6 SECONDS (10.1-12.7)
[2018-08-03 11:23] LABS: PTT Partial Thromboplastin Tim 29 SECONDS (26.4-36.2)
[2018-08-03 12:11] LABS: Hepatitis B Surface Antigen NEGATIVE s/c (NEGATIVE)
[2018-08-03 12:26] LABS: Hep C Virus Ab w/Reflex Quant NEGATIVE s/c (NEGATIVE)
[2018-08-04 19:31] LABS: Homocysteine 29.8 umol/L (< 11.4)
[2018-08-08 17:06] LABS: Cryoglobulin, Qualitative NEGATIVE
[2018-08-09 22:31] LABS: ANCA Screen Positive (Negative)
== END ==
PROVIDERS: PCP Family Medicine Geriatric Medicine; Visit Provider Family Medicine
DX: L97.822 Non-pressure chronic ulcer of other part of left lower leg with fat layer exposed (principal)
CPT/HCPCS: 36415; 81001; 82585; 82595; 83090; 85610; 85730; 86021; 86803; 87340

== ENCOUNTER → 2018-08-10 09:02 | Outpatient (CLI) | payer MEDICARE, MEDICAID, SELFPAY | PROVIDERS: PCP Family Medicine Geriatric Medicine; Visit Provider Family Medicine | DX: I87.2 Venous insufficiency (chronic) (peripheral) (principal); L97.822 Non-pressure chronic ulcer of other part of left lower leg with fat layer exposed | CPT/HCPCS: 11042; 87070; 87075; 87077; 87147; 87186; 87205; 99214 ==

== ENCOUNTER → 2018-08-17 08:57 | Outpatient (CLI) | payer MEDICARE, MEDICAID, SELFPAY | PROVIDERS: PCP Family Medicine Geriatric Medicine; Visit Provider Family Medicine | DX: I87.312 Chronic venous hypertension (idiopathic) with ulcer of left lower extremity (principal); L97.821 Non-pressure chronic ulcer of other part of left lower leg limited to breakdown of skin; E72.11 Homocystinuria; I27.20 Pulmonary hypertension, unspecified | CPT/HCPCS: 87070; 87077; 87147; 87186; 87205; 97597 ==

== ENCOUNTER → 2018-08-17 09:46 | Outpatient (CLI) | payer MEDICARE, MEDICAID, SELFPAY ==
[2018-08-17 12:04] LABS: Folate 3.8 ng/mL (2.76-20.0); Vitamin B12 233 pg/mL (239-931)
== END ==
PROVIDERS: PCP Family Medicine Geriatric Medicine; Visit Provider Family Medicine
DX: E72.11 Homocystinuria (principal); D64.9 Anemia, unspecified; I10 Essential (primary) hypertension; L97.822 Non-pressure chronic ulcer of other part of left lower leg with fat layer exposed
CPT/HCPCS: 36415; 81291; 82607; 82746

== ENCOUNTER → 2018-08-24 08:37 | Outpatient (CLI) | payer MEDICARE, MEDICAID, SELFPAY ==
[2018-08-24 11:53] LABS: Add Manual Diff / Slide Review NO; Basophils Absolute Auto 0 /uL (0-100); Basophils Percent Auto 0.5 % (0-2); Eosinophils Absolute Auto 300 /uL (0-450); Hematocrit 40.8 % (41-53); Hemoglobin 13.3 g/dL (13.5-17.5); Lymphocytes Absolute Auto 2200 /uL (1100-4500); Lymphocytes Percent Auto 25.3 % (25-40); Mean Corpuscular HGB Conc 32.8 % (30-36); Mean Corpuscular Hemoglobin 28.3 PG (26-34); Mean Corpuscular Volume 86.4 fL (80-100); Monocytes Absolute Auto 1200 /uL (0-900); Monocytes Percent Auto 13.8 % (3-14); Neutrophils Absolute Auto 4900 /uL (1500-7000); Neutrophils Percent Auto 57.4 % (50-75); Platelet Count 304 X10^3/uL (150-400); Red Blood Cell Count 4.72 X10^6/uL (4.5-5.9); Red Cell Distribution Width 14.7 % (11.6-14.8); White Blood Cell Count 8.5 X10^3/uL (4.5-11.0)
[2018-08-24 12:10] LABS: Alanine Aminotransferase 22 IU/L (21-72); Albumin 4.2 g/dL (3.5-5.0); Albumin Globulin Ratio 1.2 (1.0-2.8); Alkaline Phosphatase 96 U/L (38-126); Aspartate Aminotransferase 29 IU/L (17-59); Bilirubin Total 0.3 mg/dL (0.2-1.3); Blood Urea Nitrogen 25 mg/dL (9-20); C-Reactive Protein Quant 0.8 mg/dL (<1.0); Calcium 9.5 mg/dL (8.4-10.2); Carbon Dioxide 35 mmol/L (22-32); Chloride 95 mmol/L (98-107); Estimated Glomerular Filt Rate > 60.0 mL/min (>60); Globulin 3.4 g/dL (1.7-4.1); Glucose 111 mg/dL (80-110); HEMOLYSIS < 15 (0-50); Sodium 139 mmol/L (137-145); Total Protein 7.6 g/dL (6.3-8.2)
[2018-08-24 12:14] LABS: Erythrocyte Sedimentation Rate 20 MM/HR (0-15)
[2018-08-24 15:19] LABS: HIV 1 and 2 Antibody NEGATIVE (NEGATIVE)
[2018-08-26 14:01] LABS: RPR Screen Nonreactive (Nonreactive)
== END ==
PROVIDERS: PCP Family Medicine Geriatric Medicine; Visit Provider Family Medicine
DX: I87.2 Venous insufficiency (chronic) (peripheral) (principal); L97.822 Non-pressure chronic ulcer of other part of left lower leg with fat layer exposed; L03.116 Cellulitis of left lower limb
CPT/HCPCS: 36415; 80053; 85025; 85651; 86140; 86592; 86703; 99214

== ENCOUNTER → 2018-08-31 09:00 | Outpatient (CLI) | payer MEDICARE, MEDICAID, SELFPAY | PROVIDERS: PCP Family Medicine Geriatric Medicine; Visit Provider Family Medicine | DX: I87.312 Chronic venous hypertension (idiopathic) with ulcer of left lower extremity (principal); L97.822 Non-pressure chronic ulcer of other part of left lower leg with fat layer exposed; F17.210 Nicotine dependence, cigarettes, uncomplicated; F15.10 Other stimulant abuse, uncomplicated; E72.11 Homocystinuria | CPT/HCPCS: 15271; Q4132 ==

== ENCOUNTER → 2018-09-07 10:10 | Outpatient (CLI) | payer MEDICARE, MEDICAID, SELFPAY | PROVIDERS: PCP Family Medicine Geriatric Medicine; Visit Provider Family Medicine | DX: I87.312 Chronic venous hypertension (idiopathic) with ulcer of left lower extremity (principal); L97.822 Non-pressure chronic ulcer of other part of left lower leg with fat layer exposed; R60.0 Localized edema | CPT/HCPCS: 15271; Q4132 ==

== ENCOUNTER → 2018-09-14 09:27 | Outpatient (CLI) | payer MEDICARE, MEDICAID, SELFPAY | PROVIDERS: PCP Family Medicine Geriatric Medicine; Visit Provider Family Medicine | DX: I87.312 Chronic venous hypertension (idiopathic) with ulcer of left lower extremity (principal); L97.822 Non-pressure chronic ulcer of other part of left lower leg with fat layer exposed | CPT/HCPCS: 15271; 87070; 87075; 87077; 87147; 87176; 87205; Q4132 ==

== ENCOUNTER → 2018-09-21 10:22 | Outpatient (CLI) | payer MEDICARE, MEDICAID, SELFPAY | PROVIDERS: PCP Family Medicine Geriatric Medicine; Visit Provider Family Medicine | DX: I87.312 Chronic venous hypertension (idiopathic) with ulcer of left lower extremity (principal); L97.822 Non-pressure chronic ulcer of other part of left lower leg with fat layer exposed; I77.6 Arteritis, unspecified | CPT/HCPCS: 11042; 99213 ==

== ENCOUNTER → 2018-09-28 09:28 | Outpatient (CLI) | payer MEDICARE, MEDICAID, SELFPAY | PROVIDERS: PCP Family Medicine Geriatric Medicine; Visit Provider Family Medicine | DX: I87.332 Chronic venous hypertension (idiopathic) with ulcer and inflammation of left lower extremity (principal); L97.822 Non-pressure chronic ulcer of other part of left lower leg with fat layer exposed; I70.242 Atherosclerosis of native arteries of left leg with ulceration of calf; I10 Essential (primary) hypertension; I27.20 Pulmonary hypertension, unspecified; E72.12 Methylenetetrahydrofolate reductase deficiency; Z91.19 Patient's noncompliance with other medical treatment and regimen; L08.9 Local infection of the skin and subcutaneous tissue, unspecified; B95.4 Other streptococcus as the cause of diseases classified elsewhere | CPT/HCPCS: 11042; 99213 ==

== ENCOUNTER → 2018-10-12 08:59 | Outpatient (CLI) | payer MEDICARE, MEDICAID, SELFPAY | PROVIDERS: PCP Family Medicine Geriatric Medicine; Visit Provider Family Medicine | DX: I87.312 Chronic venous hypertension (idiopathic) with ulcer of left lower extremity (principal); L97.822 Non-pressure chronic ulcer of other part of left lower leg with fat layer exposed | CPT/HCPCS: 11042; 87070; 87077; 87102; 87186; 87205; 99212; 99214 ==

== ENCOUNTER → 2018-10-27 11:21 | Outpatient (CLI) | payer MEDICARE, MEDICAID, SELFPAY | PROVIDERS: PCP Family Medicine Geriatric Medicine; Visit Provider Family Medicine | DX: I87.2 Venous insufficiency (chronic) (peripheral) (principal); L97.821 Non-pressure chronic ulcer of other part of left lower leg limited to breakdown of skin; R60.0 Localized edema; M79.662 Pain in left lower leg | CPT/HCPCS: 11042 ==

== ENCOUNTER → 2018-11-03 12:56 | Outpatient (CLI) | payer MEDICARE, MEDICAID, SELFPAY | PROVIDERS: PCP Family Medicine Geriatric Medicine; Visit Provider Family Medicine | DX: I89.0 Lymphedema, not elsewhere classified (principal); I87.2 Venous insufficiency (chronic) (peripheral); L97.821 Non-pressure chronic ulcer of other part of left lower leg limited to breakdown of skin; M79.662 Pain in left lower leg; I27.0 Primary pulmonary hypertension | CPT/HCPCS: 97597 ==

== ENCOUNTER → 2018-11-23 15:26 | Outpatient (CLI) | payer MEDICARE, MEDICAID, SELFPAY | PROVIDERS: PCP Family Medicine Geriatric Medicine; Visit Provider Family Medicine | DX: I87.2 Venous insufficiency (chronic) (peripheral) (principal); L97.821 Non-pressure chronic ulcer of other part of left lower leg limited to breakdown of skin; M79.662 Pain in left lower leg; F15.10 Other stimulant abuse, uncomplicated; F12.10 Cannabis abuse, uncomplicated; I89.0 Lymphedema, not elsewhere classified; L03.116 Cellulitis of left lower limb | CPT/HCPCS: 97597 ==

== ENCOUNTER → 2018-12-01 08:45 | Outpatient (CLI) | payer MEDICARE, MEDICAID, SELFPAY | PROVIDERS: PCP Family Medicine Geriatric Medicine; Visit Provider Family Medicine | DX: I87.2 Venous insufficiency (chronic) (peripheral) (principal); L97.821 Non-pressure chronic ulcer of other part of left lower leg limited to breakdown of skin; R60.0 Localized edema; F15.10 Other stimulant abuse, uncomplicated; M79.662 Pain in left lower leg; F12.10 Cannabis abuse, uncomplicated; E72.11 Homocystinuria; L03.116 Cellulitis of left lower limb | CPT/HCPCS: 97597 ==

== ENCOUNTER → 2018-12-08 08:33 | Outpatient (CLI) | payer MEDICARE, MEDICAID, SELFPAY | PROVIDERS: PCP Family Medicine Geriatric Medicine; Visit Provider Family Medicine | DX: I87.332 Chronic venous hypertension (idiopathic) with ulcer and inflammation of left lower extremity (principal); L97.822 Non-pressure chronic ulcer of other part of left lower leg with fat layer exposed; I70.242 Atherosclerosis of native arteries of left leg with ulceration of calf; I10 Essential (primary) hypertension; I27.20 Pulmonary hypertension, unspecified; E72.12 Methylenetetrahydrofolate reductase deficiency; I77.6 Arteritis, unspecified; Z91.19 Patient's noncompliance with other medical treatment and regimen; I89.0 Lymphedema, not elsewhere classified; B35.4 Tinea corporis | CPT/HCPCS: 99213; 99214 ==

== ENCOUNTER → 2018-12-22 09:44 | Outpatient (CLI) | payer MEDICARE, MEDICAID, SELFPAY | PROVIDERS: PCP Family Medicine Geriatric Medicine; Visit Provider Family Medicine | DX: I87.332 Chronic venous hypertension (idiopathic) with ulcer and inflammation of left lower extremity (principal); L97.822 Non-pressure chronic ulcer of other part of left lower leg with fat layer exposed; I70.242 Atherosclerosis of native arteries of left leg with ulceration of calf; I10 Essential (primary) hypertension; I27.20 Pulmonary hypertension, unspecified; E72.12 Methylenetetrahydrofolate reductase deficiency; I77.6 Arteritis, unspecified; Z91.19 Patient's noncompliance with other medical treatment and regimen; I89.0 Lymphedema, not elsewhere classified; B35.4 Tinea corporis | CPT/HCPCS: 97597 ==

== ENCOUNTER → 2019-01-04 09:11 | Outpatient (CLI) | payer MEDICARE, MEDICAID, SELFPAY | PROVIDERS: PCP Family Medicine Geriatric Medicine; Visit Provider Family Medicine | DX: I87.332 Chronic venous hypertension (idiopathic) with ulcer and inflammation of left lower extremity (principal); I70.242 Atherosclerosis of native arteries of left leg with ulceration of calf; L97.821 Non-pressure chronic ulcer of other part of left lower leg limited to breakdown of skin; I27.20 Pulmonary hypertension, unspecified; E72.12 Methylenetetrahydrofolate reductase deficiency; Z91.19 Patient's noncompliance with other medical treatment and regimen; B35.4 Tinea corporis; I89.0 Lymphedema, not elsewhere classified; I77.6 Arteritis, unspecified | CPT/HCPCS: 97597 ==

== ENCOUNTER → 2019-01-11 09:11 | Outpatient (CLI) | payer MEDICARE, MEDICAID, SELFPAY | PROVIDERS: PCP Family Medicine Geriatric Medicine; Visit Provider Family Medicine | DX: I87.2 Venous insufficiency (chronic) (peripheral) (principal); L97.822 Non-pressure chronic ulcer of other part of left lower leg with fat layer exposed; I89.0 Lymphedema, not elsewhere classified; R60.0 Localized edema; Z91.19 Patient's noncompliance with other medical treatment and regimen | CPT/HCPCS: 15271; Q4132 ==

== ENCOUNTER → 2019-01-18 09:53 | Outpatient (CLI) | payer MEDICARE, MEDICAID, SELFPAY | PROVIDERS: PCP Family Medicine Geriatric Medicine; Visit Provider Family Medicine | DX: I87.2 Venous insufficiency (chronic) (peripheral) (principal); L97.828 Non-pressure chronic ulcer of other part of left lower leg with other specified severity; R60.0 Localized edema | CPT/HCPCS: 29581 ==

== ENCOUNTER → 2019-01-25 08:35 | Outpatient (CLI) | payer MEDICARE, MEDICAID, SELFPAY | PROVIDERS: PCP Family Medicine Geriatric Medicine; Visit Provider Family Medicine | DX: I87.332 Chronic venous hypertension (idiopathic) with ulcer and inflammation of left lower extremity (principal); L97.821 Non-pressure chronic ulcer of other part of left lower leg limited to breakdown of skin | CPT/HCPCS: 11042 ==

== ENCOUNTER → 2019-02-01 08:29 | Outpatient (CLI) | payer MEDICARE, MEDICAID, SELFPAY | PROVIDERS: PCP Family Medicine Geriatric Medicine; Visit Provider Family Medicine | DX: I87.2 Venous insufficiency (chronic) (peripheral) (principal); S90.511A Abrasion, right ankle, initial encounter; L97.821 Non-pressure chronic ulcer of other part of left lower leg limited to breakdown of skin; I27.20 Pulmonary hypertension, unspecified; L08.9 Local infection of the skin and subcutaneous tissue, unspecified; Z91.19 Patient's noncompliance with other medical treatment and regimen | CPT/HCPCS: 11042; 87070; 87077; 87147; 87205; 97597; 99214 ==

== ENCOUNTER → 2019-02-08 08:29 | Outpatient (CLI) | payer MEDICARE, MEDICAID, SELFPAY | PROVIDERS: PCP Family Medicine Geriatric Medicine; Visit Provider Family Medicine | DX: I87.2 Venous insufficiency (chronic) (peripheral) (principal); R60.0 Localized edema; L97.821 Non-pressure chronic ulcer of other part of left lower leg limited to breakdown of skin; L97.311 Non-pressure chronic ulcer of right ankle limited to breakdown of skin | CPT/HCPCS: 11042; 29580; 97597 ==

== ENCOUNTER → 2019-02-15 08:46 | Outpatient (CLI) | payer MEDICARE, MEDICAID, SELFPAY | PROVIDERS: PCP Family Medicine Geriatric Medicine; Visit Provider Family Medicine | DX: I87.2 Venous insufficiency (chronic) (peripheral) (principal); E72.11 Homocystinuria; F15.10 Other stimulant abuse, uncomplicated; L97.821 Non-pressure chronic ulcer of other part of left lower leg limited to breakdown of skin; L97.311 Non-pressure chronic ulcer of right ankle limited to breakdown of skin | CPT/HCPCS: 11042 ==

== ENCOUNTER → 2019-02-22 16:42 | Outpatient (CLI) | payer MEDICARE, MEDICAID, SELFPAY | PROVIDERS: PCP Family Medicine Geriatric Medicine; Visit Provider Family Medicine | DX: I87.2 Venous insufficiency (chronic) (peripheral) (principal); L97.821 Non-pressure chronic ulcer of other part of left lower leg limited to breakdown of skin; L97.311 Non-pressure chronic ulcer of right ankle limited to breakdown of skin; R60.0 Localized edema | CPT/HCPCS: 97597 ==

== ENCOUNTER → 2019-03-08 08:52 | Outpatient (CLI) | payer MEDICARE, MEDICAID, SELFPAY | PROVIDERS: PCP Family Medicine Geriatric Medicine; Visit Provider Family Medicine | DX: I87.2 Venous insufficiency (chronic) (peripheral) (principal); L97.821 Non-pressure chronic ulcer of other part of left lower leg limited to breakdown of skin; L97.311 Non-pressure chronic ulcer of right ankle limited to breakdown of skin | CPT/HCPCS: 97597 ==

== ENCOUNTER 2019-03-08 14:10 | Outpatient (RCR) | payer MEDICARE, MEDICAID, SELFPAY ==
--- NOTE | 2019-03-10 10:13 | PT.OIE ---
Current Diagnoses Lymphedema, not elsewhere classified (03/08/19) Past Surgical History (Last Updated 06/23/18 @ 16:46 by Santos Maxwell MD) Status post knee surgery (Chronic) Visit Care Team Role Provider Type Markell Pelaez MD Primary Care Provider Physician Specialty: Family Practice Address: [address], [place], [address] Email: [email or web address] Damon Lind MD Attending Provider Physician Specialty: Wound Care Address: [address] [place] [address], [id number] Email: [email or web address] Physical Therapy Initial Evaluation PT-OP-A Visit Information Start: 03/08/19 08:04 Freq: Status: Active Protocol: Document 03/08/19 14:31 [facility] (Rec: 03/08/19 15:06 SAK [id number]) Out-Patient Physical Therapy Visit Information Visit Information Visit Type Initial Evaluation Visit Start Time 14:30 Visit Stop Time 15:45 Total Visit Minutes 75 Visit Number 1 Evaluation Information Evaluation Date 03/08/19 PT-OP-B Current Condition Start: 03/08/19 08:04 Freq: Status: Active Protocol: Document 03/08/19 14:31 [facility]AK (Rec: 03/08/19 15:06 SAK [id number]) Current Condition History of Current Condition Onset Date 1984 History of Current Condition Multiple surgeries both legs over the years with resulting edema felix LE's. Wears compression stockings ( actually only thigh-high thin nylons) plus Dermagrip size E but not controlling adequately. Doesn't know strength of compression stockings. Has had lymphedema wrapping in past. Had venous surgery for left LE a couple months ago, scheduled to do same on right. Edema increases with increased time on his feet. [place], walks on uneven surfaces which he reports really seems to increase the swelling. . Reports hasn't been on his legs very much today so swelling minimal. Prior Treatments and Tests stockings, wraps. Future Testing and Treatments Planned Wound care, 2 left lower leg ( open for 4 years) , right lateral ankle. Treatment Goals Patient/Caregiver Goals Be able to increase activity level without increasing edema and be able to manage the edema independently. Prior Functional Status Baseline Function- ADL's Independent Baseline Function- Mobility Independent Baseline Function- Gait independent without limitation Baseline Function- Work/School no limitations on household and yardwork Baseline Function- Recreation/Hobbies no limitations Current Functional Impairments (Reported) Functional Limitations- ADL's increase in edema with increase time on feet Functional Limitations- Mobility/Gait increase in edema with increase time on feet Functional Limitations- Work/School increase in edema with increase time on feet Functional Limitations- Recreation/ increase in edema with Hobbies increase time on feet Personal Factors Other Personal Factors That May Effect low income with possible Therapy/Recovery difficulty affording recommended compression stockings PT-OP-C Subjective Start: 03/08/19 08:04 Freq: Status: Active Protocol: Document 03/10/19 09:43 [facility] (Rec: 03/10/19 10:13 [facility] [id number]) OP-PT Subjective Patient Comments Patient Comments Patient reports his swelling isn't bad today due to not being on his feet much. Patient Questionnaires Lymphedema Life Impact Score Lymphedema Score did not fill out OP-PT Pain Assessment Pain Assessment Grid Paper Pain Assessment Grid Completed Yes Location bilateral knees and right ankle Intensity 6 Description Aching,Tightness PT-OP-F Manual Assessment Start: 03/08/19 08:04 Freq: Status: Active Protocol: Document 03/10/19 09:43 [facility] (Rec: 03/10/19 10:13 [facility] [id number]) Manual Assessments Soft Tissue Assessment Soft Tissue Mobility Assessment decreased mobility of scar just inferior to right knee. PT-OP-G Mobility & Gait Start: 03/08/19 08:04 Freq: Status: Active Protocol: Document 03/10/19 09:43 [facility] (Rec: 03/10/19 10:13 [facility] [id number]) OP Gait Assessment Gait Gait Assistance Required: Independent PT-OP-K Range of Motion Start: 03/08/19 08:04 Freq: Status: Active Protocol: Document 03/10/19 09:43 [facility] (Rec: 03/10/19 10:13 [facility] [id number]) Hip Goniometric Range of Motion Hip felix Hip ROM WFL Yes Knee Goniometric Range of Motion Knee Right Knee ROM WFL No Flexion Active (degrees) 105 Extension Active (degrees) 8 Left Knee ROM WFL Yes Knee ROM Limitations Knee ROM Limitations Soft Tissue Tightness,Bony Restriction PT-OP-N Lymphedema Start: 03/08/19 08:04 Freq: Status: Active Protocol: Document 03/10/19 09:43 [facility] (Rec: 03/10/19 10:13 [facility] [id number]) Lymphedema Measurements Lower Extremity Circumference Measurements Right MT Heads 25.2 cm Medial Malleolus 27.5 cm 10 cm From Medial Malleolus 26.1 cm 20 cm From Medial Malleolus 36.6 cm 30 cm From Medial Malleolus 38.1 cm 40 cm From Medial Malleolus 46.5 cm 50 cm From Medial Malleolus 50.8 cm 60 cm From Medial Malleolus 56.6 cm Left MT Heads 25.3 cm Medial Malleolus 28.4 cm 10 cm From Medial Malleolus 26.6 cm 20 cm From Medial Malleolus 36.2 cm 30 cm From Medial Malleolus 39.8 cm 40 cm From Medial Malleolus 43 cm 50 cm From Medial Malleolus 46.1 cm 60 cm From Medial Malleolus 51.6 cm Comments Lymphedema Comments Patient reports swelling low at today's visit due to not being on feet or very active today. PT-OP-Q Treatments Start: 03/08/19 08:04 Freq: Status: Active Protocol: Document 03/10/19 09:43 [facility] (Rec: 03/10/19 10:13 [facility] [id number]) Lymphedema Treatment Manual Lymphatic Drainage Location right LE Duration 25 Lymphedema Wrapping Other Not done today; patient wearing Dermagrip and nylons and requests no wrapping today Sequential Lymphedema Exercises Comments not done today due to time constraints Compression Garment Assessment Compression Garment Assessment Details Patient educated that his current nylons and Dermagrip are not effective compression for him; recommended compression stockings and given written information on recommended stockings. Patient Education Compression Garments as above, recommendation given PT-OP-T Assessment and Plan Start: 03/08/19 08:04 Freq: Status: Active Protocol: Document 03/10/19 09:43 [facility] (Rec: 03/10/19 10:13 [facility] [id number]) Physical Therapy Assessment Rehab Potential Rehabilitation Potential Fair Evaluation Complexity Number of Personal Factors/Comorbidities 1-2 Number of Body Systems Impaired 3 Clinical Presentation at Evaluation Evolving Impairments Impairments Edema,Functional Activities Goals activity intolerance Skilled Nursing Goal (LTG) Patient able to resume usual activities with minimal to no increase in lymphedema LTG Duration 12 wks lymphedema felix LE's right greater than left Short Term Goal (STG) Decrease and stabilize lymphedema felix LE's (no increase or decrease greater than 1 cm over the course of 1 week) STG Duration 6 wks Skilled Nursing Goal (LTG) Patient to be fit with appropriate compression stockings and be able to self- manage at home with compression, ther ex, self- massage LTG Duration 12 wks Assessment Summary Assessment Patient presents with function -limiting lymphedema bilateral LE's right greater than left. His current compression to his LE's is inadequate and we spent significant time discussing options for LE compression and he was given written information with recommendation. Complicating his edema is prior right knee injury with history of multiple surgery and with poor mobility of scar tissue. He also has a history of multiple hernia repairs, cellulitis , non-healing LE ulcers (current , chronic). Feel he would benefit from physical therapy for lymphedema management to include manual lymphatic drainage, compression, sequential lymphedema exercises and assistance with obtaining appropriate compression to address his LE lymphedema. Physical Therapy Plan Frequency and Duration Frequency of Treatment 2x/Week Duration of Treatment 12 wks Plan of Care Start Date 03/08/19 Plan of Care End Date 06/07/19 Therapeutic Interventions Therapeutic Interventions Home Exercise Program, Lymphedema Management,Manual Therapy,Patient/Caregiver Education,Self-Care/Home Management,Taping,Therapeutic Exercises Next Visit Focus/Plan Next Note Type Treatment Note Next Visit Plan MLD, consider lymphedema wrapping, ther ex including sequential lymphedema exercises.
--- NOTE | 2019-03-10 10:14 | PT.OPPOC ---
Current Diagnoses Lymphedema, not elsewhere classified (03/08/19) Visit Care Team Role Provider Type J Dimitris Pelaez MD Primary Care Provider Physician Specialty: Family Practice Address: [address], [address] [place] [address], [place], [address] Email: [email or web address] Damon Lind MD Attending Provider Physician Specialty: Wound Care Address: [address] [place] [address], [address] Email: [email or web address] Plan Of Care PT-OP-T Assessment and Plan Start: 03/08/19 08:04 Freq: Status: Active Protocol: Document 03/10/19 09:43 [facility] (Rec: 03/10/19 10:13 [facility] [id number]) Physical Therapy Assessment Rehab Potential Rehabilitation Potential Fair Evaluation Complexity Number of Personal Factors/Comorbidities 1-2 Number of Body Systems Impaired 3 Clinical Presentation at Evaluation Evolving Impairments Impairments Edema,Functional Activities Goals activity intolerance [place] Goal (LTG) Patient able to resume usual activities with minimal to no increase in lymphedema LTG Duration 12 wks lymphedema felix LE's right greater than left Short Term Goal (STG) Decrease and stabilize lymphedema felix LE's (no increase or decrease greater than 1 cm over the course of 1 week) STG Duration 6 wks [place] Goal (LTG) Patient to be fit with appropriate compression stockings and be able to self- manage at home with compression, ther ex, self- massage LTG Duration 12 wks Assessment Summary Assessment Patient presents with function -limiting lymphedema bilateral LE's right greater than left. His current compression to his LE's is inadequate and we spent significant time discussing options for LE compression and he was given written information with recommendation. Complicating his edema is prior right knee injury with history of multiple surgery and with poor mobility of scar tissue. He also has a history of multiple hernia repairs, cellulitis , non-healing LE ulcers (current , chronic). Feel he would benefit from physical therapy for lymphedema management to include manual lymphatic drainage, compression, sequential lymphedema exercises and assistance with obtaining appropriate compression to address his LE lymphedema. Physical Therapy Plan Frequency and Duration Frequency of Treatment 2x/Week Duration of Treatment 12 wks Plan of Care Start Date 03/08/19 Plan of Care End Date 06/07/19 Therapeutic Interventions Therapeutic Interventions Home Exercise Program, Lymphedema Management,Manual Therapy,Patient/Caregiver Education,Self-Care/Home Management,Taping,Therapeutic Exercises Next Visit Focus/Plan Next Note Type Treatment Note Next Visit Plan MLD, consider lymphedema wrapping, ther ex including sequential lymphedema exercises. Plan of Care Dates Plan of Care Start Date 03/08/19 Plan of Care End Date 06/07/19
--- NOTE | 2019-03-29 10:47 | PT-OP ANOTE ---
DNS for PT appointment today
--- NOTE | 2019-04-07 09:58 | PT-OP ANOTE ---
no show for PT appointment
--- NOTE | 2019-06-21 13:27 | PT.OPDS ---
Current Diagnoses Lymphedema, not elsewhere classified (03/08/19) Visit Care Team Role Provider Type Markell Pelaez MD Primary Care Provider Physician Specialty: Family Practice Address: [address], [address] [place] [address], [place], [address] Email: [email or web address] Damon Lind MD Attending Provider Physician Specialty: Wound Care Address: [address] [place] [address], [address] Email: [email or web address] Visit Number Visit Number 1 Discharge Summary PT-OP-B Current Condition Start: 03/08/19 08:04 Freq: Status: Active Protocol: Document 03/08/19 14:31 [facility] (Rec: 03/08/19 15:06 [facility]AK [id number]) Current Condition History of Current Condition Onset Date 1984 History of Current Condition Multiple surgeries both legs over the years with resulting edema felix LE's. Wears compression stockings ( actually only thigh-high thin nylons) plus Dermagrip size E but not controlling adequately. Doesn't know strength of compression stockings. Has had lymphedema wrapping in past. Had venous surgery for left LE a couple months ago, scheduled to do same on right. Edema increases with increased time on his feet. Lives on [address] [facility], walks on uneven surfaces which he reports really seems to increase the swelling. . Reports hasn't been on his legs very much today so swelling minimal. Prior Treatments and Tests stockings, wraps. Future Testing and Treatments Planned Wound care, 2 left lower leg ( open for 4 years) , right lateral ankle. Treatment Goals Patient/Caregiver Goals Be able to increase activity level without increasing edema and be able to manage the edema independently. Prior Functional Status Baseline Function- ADL's Independent Baseline Function- Mobility Independent Baseline Function- Gait independent without limitation Baseline Function- Work/School no limitations on household and yardwork Baseline Function- Recreation/Hobbies no limitations Current Functional Impairments (Reported) Functional Limitations- ADL's increase in edema with increase time on feet Functional Limitations- Mobility/Gait increase in edema with increase time on feet Functional Limitations- Work/School increase in edema with increase time on feet Functional Limitations- Recreation/ increase in edema with Hobbies increase time on feet Personal Factors Other Personal Factors That May Effect low income with possible Therapy/Recovery difficulty affording recommended compression stockings PT-OP-C Subjective Start: 03/08/19 08:04 Freq: Status: Active Protocol: Document 03/08/19 09:43 [facility] (Rec: 03/10/19 10:13 [facility] [id number]) OP-PT Subjective Patient Comments Patient Comments Patient reports his swelling isn't bad today due to not being on his feet much. Patient Questionnaires Lymphedema Life Impact Score Lymphedema Score did not fill out OP-PT Pain Assessment Pain Assessment Grid Paper Pain Assessment Grid Completed Yes Location bilateral knees and right ankle Intensity 6 Description Aching,Tightness PT-OP-F Manual Assessment Start: 03/08/19 08:04 Freq: Status: Active Protocol: Document 03/08/19 09:43 [facility] (Rec: 03/10/19 10:13 [facility] [id number]) Manual Assessments Soft Tissue Assessment Soft Tissue Mobility Assessment decreased mobility of scar just inferior to right knee. PT-OP-G Mobility & Gait Start: 03/08/19 08:04 Freq: Status: Active Protocol: Document 03/08/19 09:43 [facility] (Rec: 03/10/19 10:13 [facility] [id number]) OP Gait Assessment Gait Gait Assistance Required: Independent PT-OP-K Range of Motion Start: 03/08/19 08:04 Freq: Status: Active Protocol: Document 03/08/19 09:43 [facility] (Rec: 03/10/19 10:13 [facility] [id number]) Hip Goniometric Range of Motion Hip felix Hip ROM WFL Yes Knee Goniometric Range of Motion Knee Right Knee ROM WFL No Flexion Active (degrees) 105 Extension Active (degrees) 8 Left Knee ROM WFL Yes Knee ROM Limitations Knee ROM Limitations Soft Tissue Tightness,Bony Restriction PT-OP-N Lymphedema Start: 03/08/19 08:04 Freq: Status: Active Protocol: Document 03/08/19 09:43 [facility] (Rec: 03/10/19 10:13 [facility] [id number]) Lymphedema Measurements Lower Extremity Circumference Measurements Right MT Heads 25.2 cm Medial Malleolus 27.5 cm 10 cm From Medial Malleolus 26.1 cm 20 cm From Medial Malleolus 36.6 cm 30 cm From Medial Malleolus 38.1 cm 40 cm From Medial Malleolus 46.5 cm 50 cm From Medial Malleolus 50.8 cm 60 cm From Medial Malleolus 56.6 cm Left MT Heads 25.3 cm Medial Malleolus 28.4 cm 10 cm From Medial Malleolus 26.6 cm 20 cm From Medial Malleolus 36.2 cm 30 cm From Medial Malleolus 39.8 cm 40 cm From Medial Malleolus 43 cm 50 cm From Medial Malleolus 46.1 cm 60 cm From Medial Malleolus 51.6 cm Comments Lymphedema Comments Patient reports swelling low at today's visit due to not being on feet or very active today. PT-OP-T Assessment and Plan Start: 03/08/19 08:04 Freq: Status: Active Protocol: Document 06/21/19 13:26 [facility] (Rec: 06/21/19 13:27 [facility] [id number]) Physical Therapy Plan Discharge Physical Therapy Discharge Reasons No Longer Attending PT
== END 2019-06-22 12:05 ==
LOC: PHYS 14:10
PROVIDERS: PCP Family Medicine Geriatric Medicine; Visit Provider Family Medicine
DX: I89.0 Lymphedema, not elsewhere classified
CPT/HCPCS: 97140; 97162; 97535

== ENCOUNTER → 2019-03-15 13:35 | Outpatient (CLI) | payer MEDICARE, MEDICAID, SELFPAY | PROVIDERS: PCP Family Medicine Geriatric Medicine; Visit Provider Family Medicine | DX: I87.2 Venous insufficiency (chronic) (peripheral) (principal); L97.821 Non-pressure chronic ulcer of other part of left lower leg limited to breakdown of skin; L97.311 Non-pressure chronic ulcer of right ankle limited to breakdown of skin; I89.0 Lymphedema, not elsewhere classified; E72.12 Methylenetetrahydrofolate reductase deficiency; L95.0 Livedoid vasculitis; R60.0 Localized edema | CPT/HCPCS: 97597 ==

== ENCOUNTER → 2019-03-22 08:53 | Outpatient (CLI) | payer MEDICARE, MEDICAID, SELFPAY | PROVIDERS: PCP Family Medicine Geriatric Medicine; Visit Provider Family Medicine | DX: I87.2 Venous insufficiency (chronic) (peripheral) (principal); L97.821 Non-pressure chronic ulcer of other part of left lower leg limited to breakdown of skin; L97.311 Non-pressure chronic ulcer of right ankle limited to breakdown of skin | CPT/HCPCS: 97597 ==